=== PATIENT | male | born 1955 | race Caucasian/White ===

== ENCOUNTER 2016-07-27 10:14 | Emergency (ER) | payer OTHER ==
[~2016-07-27] VITALS: Ht 180.3 cm; Wt 95.3 kg
--- NOTE | 2016-07-27 10:14 | NUR ---
BROUGHT IMMEDIATELY BACK TO BED #7 AND TRIAGED. REPORT GIVEN TO ESTHER
[2016-07-27 10:15] VITALS: BP_SYST 139
--- NOTE | 2016-07-27 10:15 | NUR ---
Dr. Johnson at bedside for evaluation
[2016-07-27] MEDS ORDERED: ASPIRIN 81 MG TAB.CHEW PO ONE (10:30)
[2016-07-27 11:12] LABS: BASOPHILS # (AUTO) 0.1 K/uL (0.0-0.2); EOSINOPHILS # (AUTO) 0.3 K/uL (0.0-0.4); EOSINOPHILS % (AUTO) 4.6 % (0.0-4.0); HEMATOCRIT 37.8 % (36-54); HEMOGLOBIN 13.1 g/dL (14.0-18.0); LYMPHOCYTES % (AUTO) 35.9 % (20.5-51.5); MEAN CORPUSCULAR HEMOGLOBIN 31 pg (27-31); MEAN CORPUSCULAR HGB CONC 35 % (32-36); MEAN CORPUSCULAR VOLUME 89 fL (79.0-98.0); MONOCYTES # (AUTO) 0.5 K/uL (0.0-1.0); MONOCYTES % (AUTO) 8.6 % (1.7-9.3); NEUTROPHILS # (AUTO) 2.6 K/uL (1.8-7.7); NEUTROPHILS % (AUTO) 49.9 % (40.0-70.0); PLATELET COUNT (AUTO) 148 K/uL (130-430); RED BLOOD CELL COUNT(AUTO) 4.25 MIL/uL (4.2-6.2); RED CELL DISTRIBUTION WIDTH 13.1 % (9.0-15.0); WHITE BLOOD COUNT (AUTO) 5.5 K/uL (4.8-10.8)
--- NOTE | 2016-07-27 11:26 | NUR ---
Patient resting quietly. No acute distress noted. Vital signs within normal range. Denies pain at this time.
[2016-07-27 11:31] LABS: PROTHROMBIN TIME 10.8 SECS (9.5-12.5)
[2016-07-27 11:42] LABS: CALCIUM 8.6 mg/dL (8.4-11.0); CREATININE 1.36 mg/dL (0.55-1.30); POTASSIUM 3.9 mmol/L (3.5-5.1)
[2016-07-27 11:46] LABS: ALBUMIN 3.6 g/dL (3.4-4.8); TOTAL BILIRUBIN 0.3 mg/dL (0.0-1.0); TOTAL PROTEIN, SERUM 6.7 g/dL (6.4-8.3)
[2016-07-27 12:37] VITALS: BP_SYST 114
--- NOTE | 2016-07-27 12:37 | NUR ---
Patient given written and verbal discharge instructions and verbalizes understanding. ER MD discussed with patient the results and treatment provided. Given copies of tests performed in ER. Patient in stable condition. ID arm band removed. nO Rx given. Patient educated on pain management and to follow up with PMD. Pain Scale 0/10. Opportunity for questions provided and answered.
== END 2016-07-27 12:37 | disposition home or self-care (01) ==
LOC: SED 10:40
DX: F41.9 Anxiety disorder, unspecified (principal); R03.0 Elevated blood-pressure reading, without diagnosis of hypertension; Z87.891 Personal history of nicotine dependence
CPT/HCPCS: 36415; 80053; 84484; 85025; 85610-TC; 93005; 99285

== ENCOUNTER 2022-10-26 06:02 | Inpatient (IN) | payer OTHER ==
[~2022-10-26] VITALS: Ht 180.3 cm; Wt 94.8 kg
[2022-10-26 06:10] VITALS: BP_SYST 140; PULSE 100; RESP 25; TEMP 97.4; O2SAT 99
--- NOTE | 2022-10-26 06:14 | NUR ---
PATIENT PRESENTS WITH ABD PAIN/BACK PAIN 10/10, HISTORY OF KIDNEY STONES
--- NOTE | 2022-10-26 06:17 | NUR ---
PATIENT PLACED IN ED BED 8, REPORT GIVEN TO NATALIE OBRIEN
--- NOTE | 2022-10-26 06:25 | NUR ---
ER at bedside examining patient.
[2022-10-26] MEDS ORDERED: ONDANSETRON 4 MG ODT TAB PO ONE (06:30)
[2022-10-26] MEDS ORDERED: KETOROLAC TROMETHAMINE 30 MG VIAL IVP ONE (06:30)
--- NOTE | 2022-10-26 06:49 | NUR ---
# 20 gauge angiocath placed to LAC. Use of asceptic technique. Opsite placed over site. Blood return noted. Blood for lab drawn from site. Flushed with 10 cc of normal saline. No evidence of infiltration noted. Patient tolerated well.
[2022-10-26 07:10] LABS: BASOPHILS % (AUTO) 0.3 % (0.0-2.0); EOSINOPHILS # (AUTO) 0.2 K/uL (0.0-0.4); EOSINOPHILS % (AUTO) 1.3 % (0.0-4.0); HEMATOCRIT 41.6 % (36-54); HEMOGLOBIN 13.8 g/dL (14.0-18.0); LYMPHOCYTES # (AUTO) 1.4 K/uL (1.0-5.5); LYMPHOCYTES % (AUTO) 11.2 % (20.5-51.5); MEAN CORPUSCULAR HEMOGLOBIN 30 pg (27-31); MEAN CORPUSCULAR HGB CONC 33 % (32-36); MEAN CORPUSCULAR VOLUME 90 fL (79.0-98.0); MONOCYTES % (AUTO) 7.9 % (1.7-9.3); NEUTROPHILS # (AUTO) 9.8 K/uL (1.8-7.7); NEUTROPHILS % (AUTO) 79.3 % (40.0-70.0); PLATELET COUNT (AUTO) 162 K/uL (130-430); RED BLOOD CELL COUNT(AUTO) 4.64 MIL/uL (4.2-6.2); RED CELL DISTRIBUTION WIDTH 14.5 % (9.0-15.0); WHITE BLOOD COUNT (AUTO) 12.4 K/uL (4.8-10.8)
[2022-10-26 07:22] LABS: ALBUMIN 3.6 g/dL (3.4-4.8); C-REACTIVE PROTEIN QUANT 7.4 mg/dL (0-0.5); CALCIUM 8.8 mg/dL (8.4-11.0); CREATININE 1.25 mg/dL (0.55-1.30); TOTAL BILIRUBIN 0.6 mg/dL (0.0-1.0)
--- NOTE | 2022-10-26 07:37 | NUR ---
Recieved pt report from CAMILLE Levy. Pt on right lateral position holding position with 5/10 pain. Pt refuses urinal due to unable to movement fo urinalysis.
--- NOTE | 2022-10-26 07:42 | NUR ---
Note hannah in EDM - 10/26/22 at 0746 by SDNURTREVOR Rad Stat call to notify MD García: Perforated liver and early absess. recommend consultation. Reported by: Juan Alberto
--- NOTE | 2022-10-26 07:47 | NUR ---
Rad Stat call to notify MD García: Perforated diverticulitis and early absess. recommend consultation. Reported by: Juan Alberto
[2022-10-26] MEDS ORDERED: PIPERACILLIN/TAZO 3.375 GM in NS 50 ML IV ONE (08:00)
[2022-10-26] MEDS ORDERED: metroNIDAZOLE 500 mg/NS 100 ML IV ONE (08:00)
[2022-10-26] MEDS ORDERED: MORPHINE 2 MG/ML INJ. SYRINGE IVP ONE ×2 (08:15→22:15)
--- NOTE | 2022-10-26 08:16 | NUR ---
Blood cultures drawn, prior to administration of antibiotic.
--- NOTE | 2022-10-26 08:18 | NUR ---
Admit bed requested Patient will be admitted to care of . Admitted to medsurg unit. Diagnosis diverticulitis Inpatient (Yes or No) y Observation (Yes or No) n Orientation concerns or request close to nursing station (Yes or No) n Covid Status na On vent or bipap n Isolation requirements n Needs a sitter n From Home (Yes or if No enter name of facility) home Requires Dialysis (Yes or No) n Med Rec Completed (Yes of No) ppending.
--- NOTE | 2022-10-26 08:54 | NUR ---
IV to LAC resistant to flush. DCd IV. # 20 gauge angiocath placed to RAC. Use of asceptic technique. Opsite placed over site. Blood return noted. Blood for lab drawn from site. Flushed with 10 cc of normal saline. No evidence of infiltration noted. Patient tolerated well.
--- NOTE | 2022-10-26 08:55 | NUR ---
Medicated per MD orders control pain per RN Toko. IVF infusing with no s/s of infiltration at this time. Will cont to monitor
--- NOTE | 2022-10-26 09:44 | NUR ---
Report given to CAMILLE Engle per telephone for [facility] pt. EMT Nirmala transported via [facility].
--- NOTE | 2022-10-26 09:54 | NUR ---
CONSULTATION PAGED/CALLED Reason for Consultation: [] DIVERTICULITIS Person Who was Notified: [] ETTA Consulting Physician: [] DR CHI Commercial Intern Specialty: [] GI Ordering Physician: [] DR RIVERA
[2022-10-26 09:55] VITALS: BP_SYST 111; PULSE 91; RESP 18; TEMP 98; O2SAT 99
--- NOTE | 2022-10-26 09:55 | NUR ---
Admission note: patient is transferred from ER via gurney. Patient is awake alert x4. Ambulatory by himself. Bed in the lowest position and side rails x2 up. Oriented the room and instructed to use call light to call for help. No pain or discomfort at this time. Will continue patient care.
--- NOTE | 2022-10-26 09:58 | NUR ---
CONSULTATION PAGED/CALLED Reason for Consultation: [] DIVERTICULITIS Person Who was Notified: [] DR GAINES Consulting Physician: [] DR GAINES Investigator Claims Specialty: [] GEN TANVI Ordering Physician: [] DR RIVERA
--- NOTE | 2022-10-26 09:59 | NUR ---
Note: Report received from Anastasia. Patient is still having the Flagyl running. Will continue patient care.
[2022-10-26 10:06] LABS: BILIRUBIN,URINE NEGATIVE (NEGATIVE); BLOOD, URINE NEGATIVE (NEGATIVE); CLARITY/URINE CLEAR (CLEAR); COLOR,URINE YELLOW (YELLOW); GLUCOSE,URINE NEGATIVE (NEGATIVE); KETONES,URINE TRACE (NEGATIVE); LEUKOCYTE ESTERASE ,URINE NEGATIVE (NEGATIVE); NITRITE, URINE NEGATIVE (NEGATIVE); PROTEIN URINE 1+ (NEGATIVE)
[2022-10-26] MEDS: D5/0.45 NS 1,000 ML IV SCH ×2 (10:34→18:01)
[2022-10-26] MEDS ORDERED: MORPHINE 2 MG/ML INJ. SYRINGE IVP PRN (11:00)
[2022-10-26] MEDS ORDERED: LORazepam 2 MG/ML VIAL IVP PRN (11:00)
[2022-10-26] MEDS ORDERED: MORPHINE 4 MG INJ. 4 MG/ML VIAL IVP PRN (11:00)
[2022-10-26] MEDS ORDERED: NALOXONE HCL 0.4 MG/ML AMP (NARCAN) IVP PRN ×2 (11:00→22:15)
--- NOTE | 2022-10-26 11:14 | NUR ---
CONSULTATION PAGED/CALLED Reason for Consultation: [] LEUKOCYTOSIS Person Who was Notified: [] VIVIAN Consulting Physician: [] DR WILSON Panel Cutter Specialty: [] ID Ordering Physician: [] DR Juany RIVERA
[2022-10-26] MEDS: metroNIDAZOLE 500 mg/NS 100 ML IV SCH ×2 (13:48→21:04)
[2022-10-26] MEDS ORDERED: PIPERACILLIN/TAZO 4.5GM/DEX-IS 100 ML IV SCH (14:00)
[2022-10-26 16:00] VITALS: BP_SYST 108; PULSE 91; RESP 18; TEMP 99.5; O2SAT 97
--- NOTE | 2022-10-26 16:40 | NUR ---
Note: patient complained abdominal and back pain but refused morphine. Called and spoke to Dr. Juany Coffey with new orders.
[2022-10-26] MEDS: KETOROLAC TROMETHAMINE 30 MG VIAL IVP PRN (16:59)
[2022-10-26] MEDS: PIPERACILLIN/TAZO 4.5GM/DEX-IS 100 ML IV SCH (18:00)
[2022-10-26 19:00] VITALS: BP_SYST 110; PULSE 65; RESP 16; TEMP 98; O2SAT 96; O2SAT 98
--- NOTE | 2022-10-26 19:20 | NUR ---
Closing note: Reported to Alvin. patient is awake alert x4. Resting in bed, No pain or discomfort at this time. Endorse to continue patient care.
[2022-10-26 20:00] VITALS: BP_SYST 110; PULSE 65; RESP 16; TEMP 98; O2SAT 98
--- NOTE | 2022-10-26 20:00 | NUR ---
pt.assessed.v/s assessed values wnl.pt.stated pain present,tolerable but does not want the morphine:4mg ivp dose. to apprise ./iv access intact.pt.capable to reposition self.no c/o nausea.call light/telephone w/in access of the pt.
--- NOTE | 2022-10-26 22:30 | NUR ---
HIGH ALERT NOTE: Called Dr. singh;a back at identified within the medical roster to verify physician authenticity./samantha;luis ordered morphine;2mg ivp x1.
--- NOTE | 2022-10-26 23:00 | NUR ---
returned the page. apprised that the pt.prefers a lower dose morphine that the 4mg ordered. ordered morphine;2mg ivp x1 .
[2022-10-26] MEDS: ONDANSETRON HCL 4 MG/2 ML VIAL IVP PRN (23:11)
[2022-10-26] MEDS: TEMAZEPAM 15 MG CAPSULE PO PRN (23:11)
[2022-10-27] VITALS (8 sets, daily range): BP systolic 98–136; PULSE 84–107; RESP 15–20; TEMP 96.9–99.1; O2SAT 96–99
--- NOTE | 2022-10-27 | NUR ---
pt.assessed.v/s assessed values wnl.pain present tolerable.no c/o pain,nausea.i have re-established the iv access location #22g rt.hand.pt.capable to reposition self.call light/telephone w/in access of the pt.
--- NOTE | 2022-10-27 02:00 | NUR ---
abx zosyn 0200a dose administered.
[2022-10-27] MEDS: PIPERACILLIN/TAZO 4.5GM/DEX-IS 100 ML IV SCH ×3 (02:15→19:17)
--- NOTE | 2022-10-27 03:00 | NUR ---
pt.c/o pain.toradol ivp administered.to assess the efficacy of the pain medication per pain mgx protocol.
[2022-10-27] MEDS: KETOROLAC TROMETHAMINE 30 MG VIAL IVP PRN (03:32)
--- NOTE | 2022-10-27 04:00 | NUR ---
pt.assessed.pt.quiescent.per flacc pain mgx pt.absent facial grimaces/body posturing.pt.capable to reposition self. call light/telephone w/in access of the pt.
[2022-10-27] MEDS: D5/0.45 NS 1,000 ML IV SCH ×2 (05:11→14:43)
--- NOTE | 2022-10-27 06:00 | NUR ---
pt.assessed.pt.quiescent;somnolent.per flacc pain mgx pt.absent facial grimaces/body posturing.iv access intact;patent flagyl abx ivpb 0600a dose administered.pt.capable to reposition self.call light/telephone w/in access of the pt.
[2022-10-27 06:27] LABS: BASOPHILS % (AUTO) 0.2 % (0.0-2.0); EOSINOPHILS % (AUTO) 0.3 % (0.0-4.0); HEMATOCRIT 36.8 % (36-54); MEAN CORPUSCULAR HEMOGLOBIN 29 pg (27-31); MEAN CORPUSCULAR HGB CONC 33 % (32-36); MEAN CORPUSCULAR VOLUME 90 fL (79.0-98.0); MONOCYTES # (AUTO) 0.6 K/uL (0.0-1.0); MONOCYTES % (AUTO) 4.8 % (1.7-9.3); NEUTROPHILS # (AUTO) 10.4 K/uL (1.8-7.7); NEUTROPHILS % (AUTO) 86.7 % (40.0-70.0); PLATELET COUNT (AUTO) 139 K/uL (130-430); RED BLOOD CELL COUNT(AUTO) 4.09 MIL/uL (4.2-6.2); RED CELL DISTRIBUTION WIDTH 15.1 % (9.0-15.0)
[2022-10-27 07:14] LABS: CALCIUM 7.9 mg/dL (8.4-11.0); CREATININE 1.98 mg/dL (0.55-1.30)
[2022-10-27] MEDS ORDERED: NALOXONE HCL 0.4 MG/ML AMP (NARCAN) IVP PRN ×2 (09:00→18:45)
[2022-10-27] MEDS ORDERED: MORPHINE 2 MG/ML INJ. SYRINGE IVP PRN (09:00)
[2022-10-27] MEDS: metroNIDAZOLE 500 mg/NS 100 ML IV SCH ×3 (09:11→21:38)
[2022-10-27] MEDS: ONDANSETRON HCL 4 MG/2 ML VIAL IVP PRN ×2 (09:14→19:17)
--- NOTE | 2022-10-27 17:24 | NUR ---
End of Shift Summary: Spent the early portion of the shift trying to get patient's pain medicines to a level that will control pain without overwhelming patient. Patient settled on Morphine [address] Coffey adjusted for patient. After receiving medication three times this shift in these amounts, patient states he is feeling less abdominal pain. Patient continues to rest without issues except pain. Patient is to remain NPO per MD order.
[2022-10-27] MEDS: MORPHINE 2 MG/ML INJ. SYRINGE IVP PRN ×2 (19:16→22:37)
--- NOTE | 2022-10-27 20:00 | NUR ---
NOTES: pt. checked, pretty awake, noted some relief from abdominal pain. VS done. IVF infusing via rt. arm moves all extremities. O2 @ 2 liters per nc. pt. family at bedside. call light within reach.
--- NOTE | 2022-10-27 22:20 | NUR ---
NOTES: pt. medicated with IV Morphine as ordered for c/o abdominal pain. no nausea noted.
--- NOTE | 2022-10-27 22:30 | NUR ---
NOTES: pt. assisted to the restroom, hs care done, changed gown. needs attended. pt. son at bedside.
--- NOTE | 2022-10-27 22:34 | NUR ---
NOTES: spoke with Dr. Hayden about IV Zofran , ok to give q 3hrs prn since pt. requested if he could have it at the same time with IV morphine.
--- NOTE | 2022-10-27 23:45 | NUR ---
NOTES: pt. calm and resting, been dozing on and off.
[2022-10-28 00:20] VITALS: BP_SYST 104; PULSE 93; RESP 18; TEMP 96.1; O2SAT 88
[2022-10-28] MEDS: D5/0.45 NS 1,000 ML IV SCH ×3 (01:21→17:46)
[2022-10-28] MEDS: ONDANSETRON HCL 4 MG/2 ML VIAL IVP PRN ×7 (01:25→20:55)
[2022-10-28] MEDS: MORPHINE 2 MG/ML INJ. SYRINGE IVP PRN ×7 (01:30→21:05)
--- NOTE | 2022-10-28 01:30 | NUR ---
NOTES: pt. awakened, still wants something for abdominal pain and nausea, IV Morphine and Zofran given as requested. repositioned self. IV site patent. kept NPO except for ice chips.
[2022-10-28] MEDS: PIPERACILLIN/TAZO 4.5GM/DEX-IS 100 ML IV SCH ×3 (01:35→17:42)
--- NOTE | 2022-10-28 04:45 | NUR ---
NOTES: medicated for abdominal pain 10/13, does not want IV Toradol, Morphine 2 mg IVP given with IV Zofran per request. IV site patent.
[2022-10-28 05:26] LABS: BASOPHILS % (AUTO) 0.2 % (0.0-2.0); EOSINOPHILS # (AUTO) 0.1 K/uL (0.0-0.4); EOSINOPHILS % (AUTO) 0.7 % (0.0-4.0); HEMATOCRIT 36.4 % (36-54); HEMOGLOBIN 11.9 g/dL (14.0-18.0); LYMPHOCYTES % (AUTO) 8.7 % (20.5-51.5); MEAN CORPUSCULAR HEMOGLOBIN 30 pg (27-31); MEAN CORPUSCULAR HGB CONC 33 % (32-36); MEAN CORPUSCULAR VOLUME 91 fL (79.0-98.0); MONOCYTES # (AUTO) 0.6 K/uL (0.0-1.0); MONOCYTES % (AUTO) 5.5 % (1.7-9.3); NEUTROPHILS # (AUTO) 9.3 K/uL (1.8-7.7); NEUTROPHILS % (AUTO) 84.9 % (40.0-70.0); PLATELET COUNT (AUTO) 144 K/uL (130-430); RED BLOOD CELL COUNT(AUTO) 4.02 MIL/uL (4.2-6.2); RED CELL DISTRIBUTION WIDTH 15.1 % (9.0-15.0)
[2022-10-28 05:41] LABS: ERYTHROCYTE SEDIMENTATION RATE 77 MM/HR (0-15)
[2022-10-28] MEDS: metroNIDAZOLE 500 mg/NS 100 ML IV SCH ×3 (05:49→21:07)
[2022-10-28 05:50] LABS: ANION GAP 8 (5-15); CALCIUM 8.2 mg/dL (8.4-11.0); CHLORIDE 104 mmol/L (98-107); CREATININE 1.68 mg/dL (0.55-1.30); GFR AFRICAN AMERICAN 53 mL/min (>90); GLUCOSE 148 mg/dL (70-99); UREA NITROGEN, BLOOD 26 mg/dL (8-21)
[2022-10-28 05:52] LABS: C-REACTIVE PROTEIN QUANT < 0.2 mg/dL (0-0.5)
--- NOTE | 2022-10-28 06:39 | NUR ---
CLOSING NOTES; pt. been dozing on and off. IVF infusing, site patent. will endorse to incoming shift. for further care and assistance. call light within reach.
--- NOTE | 2022-10-28 07:30 | NUR ---
Initial note: report received from Aria. Patient is awake alert x4. Call light in reach. Bed in the lowest position and side rails x2 up. is at the bedside. Will follow up with his pain medication due to abdominal pain. Will continue patient care.
[2022-10-28 08:00] VITALS: BP_SYST 103; PULSE 86; RESP 18; TEMP 97.7; O2SAT 97
[2022-10-28 12:00] VITALS: BP_SYST 106; PULSE 88; RESP 18; TEMP 97.1; O2SAT 98
--- NOTE | 2022-10-28 13:00 | NUR ---
Note: patient is resting in bed. Family is at the bedside. will continue to monitor the pain.
--- NOTE | 2022-10-28 15:00 | NUR ---
Note: Dr. Nur is here to see patient. Plan of care is discussed and no new order for now.
[2022-10-28 16:00] VITALS: BP_SYST 111; PULSE 89; RESP 18; TEMP 98.5; O2SAT 96
--- NOTE | 2022-10-28 19:30 | NUR ---
INITIAL NOTES: endorsed by day shift with DX Diverticulitis ( Perforated). in nondistress. pain management all day. call light within reach.
--- NOTE | 2022-10-28 19:35 | NUR ---
Closing note: reported to Aria. patient is resting in bed. No pain or discomfort at this time. Endorse to continue patient care. Family is at the bedside.
[2022-10-28 20:00] VITALS: BP_SYST 107; PULSE 89; RESP 20; TEMP 98.7; O2SAT 96
--- NOTE | 2022-10-28 20:00 | NUR ---
NOTES: pt. checked, with daughter at bedside. pt. feels little better. made rounds today. kept NPO except ice chips. IV site patent, IV infusing. O2 on @ 2 liters per nc. instructed on deep breathing. call light within reach.
[2022-10-28 20:30] VITALS: O2SAT 95
--- NOTE | 2022-10-28 21:05 | NUR ---
NOTES; pt. medicated with IV Morphine and IV Zofran for c/o abdominal pain and nausea. visitors at bedside.
--- NOTE | 2022-10-28 21:30 | NUR ---
NOTES: resting, noted some relief. still with visitors. needs attended.
[2022-10-29 00:17] VITALS: BP_SYST 126; BP_SYST 99; PULSE 121; PULSE 85; RESP 17; RESP 18; TEMP 97.6; TEMP 97.9; O2SAT 85; O2SAT 96
--- NOTE | 2022-10-29 00:20 | NUR ---
NOTES: offered pain medication, pt. said he is not in pain, will check back later.
--- NOTE | 2022-10-29 01:10 | NUR ---
NOTES: pt. checked and sound asleep.
[2022-10-29] MEDS: KETOROLAC TROMETHAMINE 30 MG VIAL IVP PRN (01:39)
--- NOTE | 2022-10-29 01:40 | NUR ---
NOTES: pt. awakened, starting to have abdominal pain, medicated with IV Toradol as requested 10/13. turn to his sides, back also aching. IV antibiotic started.
[2022-10-29] MEDS: PIPERACILLIN/TAZO 4.5GM/DEX-IS 100 ML IV SCH ×3 (01:41→18:46)
--- NOTE | 2022-10-29 05:30 | NUR ---
NOTES: pt. up to the restroom. oral care/am care done. verbalized he got sweaty, gown changed, back care done and draw sheet. pt. feels much better after.
[2022-10-29] MEDS: metroNIDAZOLE 500 mg/NS 100 ML IV SCH ×3 (06:01→22:17)
[2022-10-29 06:18] LABS: BASOPHILS % (AUTO) 0.3 % (0.0-2.0); EOSINOPHILS # (AUTO) 0.3 K/uL (0.0-0.4); HEMOGLOBIN 11.6 g/dL (14.0-18.0); LYMPHOCYTES # (AUTO) 1.2 K/uL (1.0-5.5); MEAN CORPUSCULAR HEMOGLOBIN 30 pg (27-31); MEAN CORPUSCULAR HGB CONC 33 % (32-36); MEAN CORPUSCULAR VOLUME 90 fL (79.0-98.0); MONOCYTES # (AUTO) 0.7 K/uL (0.0-1.0); MONOCYTES % (AUTO) 6.9 % (1.7-9.3); NEUTROPHILS # (AUTO) 8.4 K/uL (1.8-7.7); NEUTROPHILS % (AUTO) 78.8 % (40.0-70.0); PLATELET COUNT (AUTO) 164 K/uL (130-430); RED BLOOD CELL COUNT(AUTO) 3.89 MIL/uL (4.2-6.2); WHITE BLOOD COUNT (AUTO) 10.7 K/uL (4.8-10.8)
[2022-10-29 06:25] LABS: ALANINE AMINOTRANSFERASE 8 U/L (12-78); ALBUMIN 2.4 g/dL (3.4-4.8); ANION GAP 8 (5-15); ASPARTATE AMINOTRANSFERASE 15 U/L (10-37); CALCIUM 8.2 mg/dL (8.4-11.0); CHLORIDE 102 mmol/L (98-107); CREATININE 1.71 mg/dL (0.55-1.30); GFR AFRICAN AMERICAN 52 mL/min (>90); GLUCOSE 146 mg/dL (70-99); TOTAL BILIRUBIN 0.9 mg/dL (0.0-1.0); UREA NITROGEN, BLOOD 22 mg/dL (8-21)
[2022-10-29 06:26] LABS: C-REACTIVE PROTEIN QUANT < 0.2 mg/dL (0-0.5)
[2022-10-29] MEDS: ONDANSETRON HCL 4 MG/2 ML VIAL IVP PRN ×3 (06:46→18:54)
[2022-10-29] MEDS: D5/0.45 NS 1,000 ML IV SCH ×2 (06:46→18:45)
[2022-10-29] MEDS: MORPHINE 2 MG/ML INJ. SYRINGE IVP PRN ×3 (06:48→18:55)
--- NOTE | 2022-10-29 06:50 | NUR ---
CLOSING NOTES; pt. medicated with Morphine IV and Zofran. repositioned self. O2 on. IV site patent. kept NPO . call light within reach.
[2022-10-29 07:09] LABS: ERYTHROCYTE SEDIMENTATION RATE 83 MM/HR (0-15)
--- NOTE | 2022-10-29 07:30 | NUR ---
Initial note: Patient resting in bed. Call light in reach. Bed in the lowest position and side rails x2 up. Will follow up with his pain medication due to abdominal pain. Will continue patient care.
[2022-10-29 08:15] VITALS: BP_SYST 101; PULSE 79; RESP 18; TEMP 97.6; O2SAT 96
[2022-10-29 10:11] VITALS: O2SAT 96
--- NOTE | 2022-10-29 11:45 | NUR ---
Rounds: Patient resting in bed. Asked earlier for some prn for anxiety, prn given as ordered. Call light in reach. Bed in the lowest position and side rails x2 up. Will follow up with his pain medication due to abdominal pain. Will continue patient care.
--- NOTE | 2022-10-29 13:37 | NUR ---
CONSULTATION: REASON FOR CONSULT: ALFONSO CONSULTING PHYSICIAN: JAI ORDERED BY: Juany RIVERA SPOKE WITH MAXIMO [phone]
[2022-10-29 16:00] VITALS: BP_SYST 122; PULSE 91; RESP 17; TEMP 98.1; O2SAT 99
--- NOTE | 2022-10-29 16:32 | NUR ---
CTAP RESULTS RESULTS RELAYED TO DR NDIAYE. SURGEON WOULD LIKE TO REVIEW THE FILM WITH THE RADIOLOGIST. SURGEON WAS PROVIDED CELL PHONE NUMBER OF DR FAVIOLA MOREJON [phone]
--- NOTE | 2022-10-29 19:00 | NUR ---
Closing note: patient is awake alert x4. Resting in bed, No pain or discomfort at this time.Family at bedside . IV patent and running fluids as ordered. Endorse care to NOC nurse. to continue patient care.
[2022-10-29 20:00] VITALS: BP_SYST 116; PULSE 89; RESP 18; TEMP 99; O2SAT 99
--- NOTE | 2022-10-29 21:00 | NUR ---
Dr. Siu at bedside speaking with pt and pt on plan of care and current diagnosis. All questions answered by Dr. Siu. Plan to treat infection. said pt is allowed ice chips and small sips of water. pt verbalized understanding of plan of care
[2022-10-29 22:00] VITALS: O2SAT 96
[2022-10-29] MEDS: TEMAZEPAM 15 MG CAPSULE PO PRN (22:17)
[2022-10-30] MEDS: MORPHINE 2 MG/ML INJ. SYRINGE IVP PRN (01:30)
[2022-10-30] MEDS: ONDANSETRON HCL 4 MG/2 ML VIAL IVP PRN (01:31)
[2022-10-30] MEDS: PIPERACILLIN/TAZO 4.5GM/DEX-IS 100 ML IV SCH ×3 (01:32→17:26)
[2022-10-30] MEDS: D5/0.45 NS 1,000 ML IV SCH ×3 (02:30→22:27)
[2022-10-30 05:25] LABS: BASOPHILS % (AUTO) 0.5 % (0.0-2.0); EOSINOPHILS # (AUTO) 0.4 K/uL (0.0-0.4); EOSINOPHILS % (AUTO) 4.8 % (0.0-4.0); HEMOGLOBIN 11.2 g/dL (14.0-18.0); LYMPHOCYTES # (AUTO) 1.1 K/uL (1.0-5.5); LYMPHOCYTES % (AUTO) 12.3 % (20.5-51.5); MEAN CORPUSCULAR HEMOGLOBIN 30 pg (27-31); MEAN CORPUSCULAR HGB CONC 33 % (32-36); MEAN CORPUSCULAR VOLUME 90 fL (79.0-98.0); MONOCYTES # (AUTO) 0.6 K/uL (0.0-1.0); MONOCYTES % (AUTO) 6.3 % (1.7-9.3); NEUTROPHILS % (AUTO) 76.1 % (40.0-70.0); PLATELET COUNT (AUTO) 163 K/uL (130-430); RED BLOOD CELL COUNT(AUTO) 3.78 MIL/uL (4.2-6.2); RED CELL DISTRIBUTION WIDTH 14.8 % (9.0-15.0); WHITE BLOOD COUNT (AUTO) 9.2 K/uL (4.8-10.8)
[2022-10-30] MEDS: metroNIDAZOLE 500 mg/NS 100 ML IV SCH ×3 (05:33→22:02)
[2022-10-30 07:30] VITALS: O2SAT 98
--- NOTE | 2022-10-30 07:30 | NUR ---
INITIAL NOTE PT RESTING IN BED, ALERT/AWAKE. BREATHING EVEN AND NONLABORED. NO S/S OF ACUTE DISTRESS. SAFETY CHECKS IN PLACE. CALL LIGHT IN REACH. CONTINUE TO MONITOR
[2022-10-30 07:50] LABS: ERYTHROCYTE SEDIMENTATION RATE 85 MM/HR (0-15)
[2022-10-30] MEDS: ACETAMINOPHEN I.V. 1000 MG 100 ML IV PRN ×3 (07:58→20:21)
[2022-10-30 08:25] VITALS: BP_SYST 129; PULSE 83; RESP 16; TEMP 97
[2022-10-30 09:08] LABS: CALCIUM 8.2 mg/dL (8.4-11.0); CREATININE 1.33 mg/dL (0.55-1.30); PHOSPHORUS 2.9 mg/dL (2.7-4.5)
--- NOTE | 2022-10-30 11:17 | NUR ---
ROUNDS: PT RESTING IN BED, ALERT/AWAKE. BREATHING EVEN AND NONLABORED. HAD PAIN MEDS EARLIER, REPORTS MED WAS HELPFUL. NO S/S OF ACUTE DISTRESS. SAFETY CHECKS IN PLACE. CALL LIGHT IN REACH. CONTINUE TO MONITOR
[2022-10-30 12:49] VITALS: BP_SYST 135; PULSE 81; RESP 16; TEMP 97.3; O2SAT 95
[2022-10-30 13:28] LABS: C-REACTIVE PROTEIN QUANT 18.6 mg/dL (0-0.5)
[2022-10-30 16:51] VITALS: BP_SYST 128; PULSE 80; RESP 16; TEMP 97.9; O2SAT 94
--- NOTE | 2022-10-30 18:53 | NUR ---
CLOSING NOTE PT RESTING IN BED AND EYES CLOSED. BREATHING EVEN AND NONLABORED. ALL COMFORT MEASURE IN PLACE. ENCOURAGE TO DO BREATHING EXERCISES , PROVIDED INCENTIVE SPIROMETER EARLIER. SAFETY CHECKS IN PLACE. CALL LIGHT IN REACH. CONTINUE TO MONITOR
[2022-10-30 20:00] VITALS: BP_SYST 133; PULSE 81; RESP 16; TEMP 98.7; O2SAT 97
--- NOTE | 2022-10-30 20:31 | NUR ---
Paged Dr. Coffey Joseph
[2022-10-30 22:00] VITALS: O2SAT 98
[2022-10-30] MEDS: FAMOTIDINE PF 20 MG/2 ML VIAL IVP SCH (22:02)
[2022-10-31 02:30] VITALS: BP_SYST 128; PULSE 80; RESP 18; TEMP 96.4; O2SAT 98
[2022-10-31] MEDS: PIPERACILLIN/TAZO 4.5GM/DEX-IS 100 ML IV SCH ×3 (03:10→17:46)
[2022-10-31] MEDS ORDERED: ACETAMINOPHEN I.V. 1000 MG 100 ML IV ONE (04:37)
[2022-10-31] MEDS: ACETAMINOPHEN I.V. 1000 MG 100 ML IV PRN ×3 (05:24→23:59)
[2022-10-31 05:54] LABS: ANION GAP 9 (5-15); CALCIUM 8.3 mg/dL (8.4-11.0); CHLORIDE 104 mmol/L (98-107); CREATININE 1.14 mg/dL (0.55-1.30); GFR AFRICAN AMERICAN 82 mL/min (>90); GLUCOSE 125 mg/dL (70-99); UREA NITROGEN, BLOOD 13 mg/dL (8-21)
[2022-10-31 06:04] LABS: BASOPHILS % (AUTO) 0.5 % (0.0-2.0); EOSINOPHILS # (AUTO) 0.4 K/uL (0.0-0.4); EOSINOPHILS % (AUTO) 3.8 % (0.0-4.0); HEMATOCRIT 34.4 % (36-54); HEMOGLOBIN 11.4 g/dL (14.0-18.0); LYMPHOCYTES % (AUTO) 10.9 % (20.5-51.5); MEAN CORPUSCULAR HEMOGLOBIN 30 pg (27-31); MEAN CORPUSCULAR HGB CONC 33 % (32-36); MEAN CORPUSCULAR VOLUME 90 fL (79.0-98.0); MONOCYTES % (AUTO) 10.2 % (1.7-9.3); NEUTROPHILS # (AUTO) 7.1 K/uL (1.8-7.7); NEUTROPHILS % (AUTO) 74.6 % (40.0-70.0); PLATELET COUNT (AUTO) 196 K/uL (130-430); RED BLOOD CELL COUNT(AUTO) 3.85 MIL/uL (4.2-6.2); WHITE BLOOD COUNT (AUTO) 9.5 K/uL (4.8-10.8)
[2022-10-31] MEDS: metroNIDAZOLE 500 mg/NS 100 ML IV SCH ×3 (06:07→22:03)
[2022-10-31 06:30] LABS: C-REACTIVE PROTEIN QUANT < 0.2 mg/dL (0-0.5)
[2022-10-31 07:02] LABS: ERYTHROCYTE SEDIMENTATION RATE 84 MM/HR (0-15)
[2022-10-31 08:31] VITALS: BP_SYST 126; PULSE 77; RESP 18; TEMP 97.3; O2SAT 96
[2022-10-31] MEDS: D5/0.45 NS 1,000 ML IV SCH ×2 (08:49→17:45)
[2022-10-31] MEDS: FAMOTIDINE PF 20 MG/2 ML VIAL IVP SCH ×2 (08:49→20:39)
--- NOTE | 2022-10-31 10:15 | NUR ---
YANET went to bedside to round on patient . He is about to enter the shower. DCP discussed with patient . She has many questions concerning who the consults are and what the plan of treatment is. Dr Cancino came to bedside and spoke with her. YANET discussed possible HH for RN disease managment. states she is "not ready to discuss all of this right now" CM gave number to reach when she is ready to discuss DCP or has questions. She is waiting for Dr Andrews to speak with her.
[2022-10-31 11:28] VITALS: BP_SYST 148; PULSE 81; RESP 18; TEMP 97.4; O2SAT 95
--- NOTE | 2022-10-31 15:22 | NUR ---
Left message with Doctor Jackson regarding second opinion of a perforated bowel surgery as emergent or discharge back to [facility].
--- NOTE | 2022-10-31 15:25 | NUR ---
CALLED DR CHACKO FOR CONSULT SECOND OPINION HE STATED HE WILL SEND HIS PA TODAY TO SEE PT. AND HE WILL MAKE ROUND TOMORROW MORNING [phone]
[2022-10-31 18:14] VITALS: BP_SYST 135; PULSE 84; RESP 17; TEMP 98.2; O2SAT 95
[2022-10-31 20:00] VITALS: BP_SYST 129; PULSE 78; RESP 17; TEMP 98.6; O2SAT 97
[2022-10-31] MEDS: TEMAZEPAM 15 MG CAPSULE PO PRN (21:54)
[2022-10-31] MEDS ORDERED: traZODone HCL 50 MG TABLET (DESYREL) PO PRN (23:15)
[2022-11-01] VITALS (8 sets, daily range): BP systolic 124–138; PULSE 67–82; RESP 17–21; TEMP 97.3–98.7; O2SAT 94–98
[2022-11-01] MEDS: PIPERACILLIN/TAZO 4.5GM/DEX-IS 100 ML IV SCH ×3 (01:21→18:08)
--- NOTE | 2022-11-01 01:25 | NUR ---
PATIENT CALLED STATING THAT HIS ROOMMATE IS CONFUSED AND WAS WAKEN BY ROOMMATE, INFORMED PATIENT THAT WE COULD MOVE HIM TO A DIFFERENT ROOM BUT PATIENT DENIED, I ENCOURAGED HIM THAT TO PLEASE INFORMED ME IF HE WOULD LIKE TO BE MOVED AT ANY TIME. Addendum: 11/01/22 at 0430 by Jaimie Landon LVN WRONG PATIENT
[2022-11-01] MEDS: metroNIDAZOLE 500 mg/NS 100 ML IV SCH ×3 (05:05→22:47)
[2022-11-01] MEDS: D5/0.45 NS 1,000 ML IV SCH ×3 (06:10→22:46)
[2022-11-01 06:17] LABS: BASOPHILS % (AUTO) 0.5 % (0.0-2.0); EOSINOPHILS # (AUTO) 0.3 K/uL (0.0-0.4); EOSINOPHILS % (AUTO) 3.8 % (0.0-4.0); HEMATOCRIT 35.1 % (36-54); HEMOGLOBIN 11.6 g/dL (14.0-18.0); LYMPHOCYTES # (AUTO) 1.2 K/uL (1.0-5.5); LYMPHOCYTES % (AUTO) 13.4 % (20.5-51.5); MEAN CORPUSCULAR HEMOGLOBIN 30 pg (27-31); MEAN CORPUSCULAR HGB CONC 33 % (32-36); MEAN CORPUSCULAR VOLUME 89 fL (79.0-98.0); MONOCYTES % (AUTO) 10.8 % (1.7-9.3); NEUTROPHILS # (AUTO) 6.5 K/uL (1.8-7.7); NEUTROPHILS % (AUTO) 71.5 % (40.0-70.0); PLATELET COUNT (AUTO) 216 K/uL (130-430); RED BLOOD CELL COUNT(AUTO) 3.94 MIL/uL (4.2-6.2); RED CELL DISTRIBUTION WIDTH 14.7 % (9.0-15.0)
[2022-11-01 06:35] LABS: ANION GAP 10 (5-15); CALCIUM 8.1 mg/dL (8.4-11.0); CHLORIDE 104 mmol/L (98-107); CREATININE 1.14 mg/dL (0.55-1.30); GFR AFRICAN AMERICAN 82 mL/min (>90); GLUCOSE 128 mg/dL (74-106); UREA NITROGEN, BLOOD 9 mg/dL (8-21)
[2022-11-01 06:41] LABS: C-REACTIVE PROTEIN QUANT < 0.2 mg/dL (0-0.5)
[2022-11-01 08:48] LABS: ERYTHROCYTE SEDIMENTATION RATE 74 MM/HR (0-15)
[2022-11-01] MEDS: FAMOTIDINE PF 20 MG/2 ML VIAL IVP SCH ×2 (09:11→22:46)
[2022-11-01] MEDS: ACETAMINOPHEN I.V. 1000 MG 100 ML IV PRN ×2 (09:12→18:24)
--- NOTE | 2022-11-01 13:20 | NUR ---
Dietitian Recommendations * Consider alternative nutrition support within 1 week to optimize nutritional status (TPN/PPN) LP, MS, RD Please refer to Nutrition Assessment for details. Addendum: 11/01/22 at [address] Amended: Links added.
--- NOTE | 2022-11-01 18:35 | NUR ---
Pt. is AAOx 4, verbally responsive, RA, Respiration even and non-labored. Abdominal distention. CT stated SBO. MD gave order to insert NG-Tube for decompression and midline for multiple IV ATB. Endorsed to next shift to insert NG-Tube. Cont. with care.
[2022-11-01] MEDS: TEMAZEPAM 15 MG CAPSULE PO PRN (23:32)
[2022-11-02] VITALS (8 sets, daily range): BP systolic 127–147; PULSE 62–81; RESP 15–16; TEMP 97.1–97.4; O2SAT 94–99
[2022-11-02] MEDS: ACETAMINOPHEN I.V. 1000 MG 100 ML IV PRN ×3 (01:48→22:02)
[2022-11-02] MEDS: PIPERACILLIN/TAZO 4.5GM/DEX-IS 100 ML IV SCH ×3 (01:50→17:42)
[2022-11-02 05:42] LABS: BASOPHILS % (AUTO) 0.5 % (0.0-2.0); EOSINOPHILS # (AUTO) 0.4 K/uL (0.0-0.4); EOSINOPHILS % (AUTO) 4.7 % (0.0-4.0); HEMATOCRIT 35.3 % (36-54); HEMOGLOBIN 11.8 g/dL (14.0-18.0); LYMPHOCYTES # (AUTO) 1.5 K/uL (1.0-5.5); LYMPHOCYTES % (AUTO) 16.6 % (20.5-51.5); MEAN CORPUSCULAR HEMOGLOBIN 30 pg (27-31); MEAN CORPUSCULAR HGB CONC 33 % (32-36); MEAN CORPUSCULAR VOLUME 89 fL (79.0-98.0); MONOCYTES % (AUTO) 11.2 % (1.7-9.3); NEUTROPHILS # (AUTO) 6.2 K/uL (1.8-7.7); PLATELET COUNT (AUTO) 243 K/uL (130-430); RED BLOOD CELL COUNT(AUTO) 3.97 MIL/uL (4.2-6.2); RED CELL DISTRIBUTION WIDTH 14.9 % (9.0-15.0); WHITE BLOOD COUNT (AUTO) 9.3 K/uL (4.8-10.8)
[2022-11-02] MEDS: metroNIDAZOLE 500 mg/NS 100 ML IV SCH ×3 (06:14→21:16)
[2022-11-02 06:15] LABS: ALBUMIN 2.3 g/dL (3.4-4.8); CALCIUM 8.1 mg/dL (8.4-11.0); CREATININE 1.1 mg/dL (0.55-1.30); PHOSPHORUS 3.4 mg/dL (2.7-4.5); TOTAL BILIRUBIN 0.6 mg/dL (0.0-1.0)
[2022-11-02 06:46] LABS: ERYTHROCYTE SEDIMENTATION RATE 61 MM/HR (0-15)
--- NOTE | 2022-11-02 06:59 | NUR ---
CONSULTATION PAGED/CALLED Reason for Consultation: [] 2ND OPINION FOR PERFORATED DIVERTICULITIS Person Who was Notified: [] TERRI Consulting Physician: [] DR ADALBERTO BEATTY Rn Coronary Care Unit Specialty: [] GEN SURGEON Ordering Physician: [] DR GAINES
[2022-11-02] MEDS: FAMOTIDINE PF 20 MG/2 ML VIAL IVP SCH ×2 (09:06→21:16)
[2022-11-02] MEDS: D5/0.45 NS 1,000 ML IV SCH (11:30)
--- NOTE | 2022-11-02 12:00 | NUR ---
PATIENT POTASSIUM LEVEL IS 3.2 CALLED Angeles CHACKO MD PRESCRIBED KCL 40 MEQ IV X1
--- NOTE | 2022-11-02 12:00 | NUR ---
ROUNDING NOTES PATIENT RESTING, BREATHING UNLABORED ON RA. NO PAIN, NO DISTRESS, NO SOB NOTED. ALL NEED MET AT THIS TIME. SAFETY PRECAUTION IN PLACE. CALL LIGHT WITHIN REACH. BED LOCKED IN LOWEST POSITION. BED ALARM ON. WILL CONTINUE WITH PLAN OF CARE.
[2022-11-02] MEDS ORDERED: POTASSIUM CHLORIDE 40 MEQ in NS 250 ML IV ONE (18:00)
--- NOTE | 2022-11-02 18:50 | NUR ---
CLOSING NOTES PATIENT RESTING, BREATHING UNLABORED ON RA. NO PAIN, NO DISTRESS, NO SOB NOTED. ALL NEED MET AT THIS TIME. SAFETY PRECAUTION IN PLACE. CALL LIGHT WITHIN REACH. BED LOCKED IN LOWEST POSITION. BED ALARM ON. WILL ENDORSE TO PAINTER MIRROR NURSE.
[2022-11-02] MEDS ORDERED: KCL 40 mEq in 100 mL (PREMIX) 100 ML IV ONE (20:00)
--- NOTE | 2022-11-02 21:17 | NUR ---
RECEIVED PT SITTING AT EDGE OF BED. AAOX4, NO DISTRESS NOTED, DENIES PAIN. MIDLINE TO LT UPPER EXTREMITY, SITE CDI. ABD DISTENDED, HYPERACTIVE BOWEL SOUNDS, AND FIRM. AMBULATED TO BATHROOM, GAIT STEADY.
[2022-11-02] MEDS: TEMAZEPAM 15 MG CAPSULE PO PRN (22:09)
[2022-11-03 00:38] VITALS: BP_SYST 136; PULSE 78; RESP 16; TEMP 97.6; O2SAT 98
[2022-11-03] MEDS: PIPERACILLIN/TAZO 4.5GM/DEX-IS 100 ML IV SCH ×3 (02:26→19:04)
[2022-11-03] MEDS: ACETAMINOPHEN I.V. 1000 MG 100 ML IV PRN ×3 (04:52→20:26)
[2022-11-03] MEDS: metroNIDAZOLE 500 mg/NS 100 ML IV SCH ×3 (05:27→22:22)
[2022-11-03] MEDS: D5/0.45 NS 1,000 ML IV SCH ×3 (05:29→16:30)
[2022-11-03 07:17] LABS: BASOPHILS % (AUTO) 0.4 % (0.0-2.0); EOSINOPHILS # (AUTO) 0.5 K/uL (0.0-0.4); EOSINOPHILS % (AUTO) 4.2 % (0.0-4.0); HEMATOCRIT 35.8 % (36-54); HEMOGLOBIN 11.6 g/dL (14.0-18.0); LYMPHOCYTES # (AUTO) 1.9 K/uL (1.0-5.5); LYMPHOCYTES % (AUTO) 17.2 % (20.5-51.5); MEAN CORPUSCULAR HEMOGLOBIN 29 pg (27-31); MEAN CORPUSCULAR HGB CONC 33 % (32-36); MEAN CORPUSCULAR VOLUME 89 fL (79.0-98.0); MONOCYTES % (AUTO) 8.6 % (1.7-9.3); NEUTROPHILS # (AUTO) 7.7 K/uL (1.8-7.7); NEUTROPHILS % (AUTO) 69.6 % (40.0-70.0); PLATELET COUNT (AUTO) 276 K/uL (130-430); RED BLOOD CELL COUNT(AUTO) 4.04 MIL/uL (4.2-6.2); RED CELL DISTRIBUTION WIDTH 15.1 % (9.0-15.0); WHITE BLOOD COUNT (AUTO) 11.1 K/uL (4.8-10.8)
[2022-11-03 07:32] LABS: CALCIUM 8.2 mg/dL (8.4-11.0); CREATININE 1.08 mg/dL (0.55-1.30)
--- NOTE | 2022-11-03 07:59 | NUR ---
OPENING NOTES: PATIENT IN BED WITH EYES OPENED. RESPONDED TO NAME. BREATHING IS EVEN AND UNLABORED ON RA 98%. NO S/S OF DISTRESS OR PAIN NOTED. BROUGHT PATIENT ICE CHIPS. ALL NEEDS MET AT THIS TIME, SAFETY CHECKS MADE AND CALL LIGHT WITHIN REACH.
[2022-11-03 08:00] VITALS: BP_SYST 135; PULSE 65; RESP 15; TEMP 97.5; O2SAT 98
[2022-11-03 08:03] LABS: ERYTHROCYTE SEDIMENTATION RATE 59 MM/HR (0-15)
[2022-11-03] MEDS ORDERED: *TPN PER PHARMACY XX PRN (09:00)
[2022-11-03] MEDS ORDERED: DEXTROSE 50% JECT 50 ML DISP.SYRIN IVP PRN (09:00)
[2022-11-03] MEDS: FAMOTIDINE PF 20 MG/2 ML VIAL IVP SCH ×2 (09:46→20:26)
[2022-11-03 11:04] VITALS: O2SAT 98
[2022-11-03 12:00] VITALS: BP_SYST 142; PULSE 75; RESP 16; TEMP 97.6; O2SAT 97
[2022-11-03 16:00] VITALS: BP_SYST 138; PULSE 63; RESP 18; TEMP 97.6; O2SAT 97
--- NOTE | 2022-11-03 16:22 | NUR ---
DR SÁNCHEZ AT PATIENT BEDSIDE TALKING WITH PATIENT.
[2022-11-03] MEDS: FLUCONAZOLE 200 mg/ NS 100 ML IV SCH (17:07)
--- NOTE | 2022-11-03 18:20 | NUR ---
CLOSING NOTES: PATIENT SITTING IN CHAIR NEXT TO BED. NO S/S OF DISTRESS OR PAIN REPORTED. BREATHING IS EVEN AND UNLABORED ON RA 97%. ALL NEEDS MET AT THIS TIME, SAFETY CHECKS MADE AND CALL LIGHT WITHIN REACH. WILL ENDORSE TO MICROELECTRONICS ENGINEER NURSE.
[2022-11-03 20:05] VITALS: BP_SYST 156; PULSE 99; RESP 18; TEMP 97.3; O2SAT 99
--- NOTE | 2022-11-03 20:05 | NUR ---
Opening notes Pt AAOx4, VSS, afebrile. No s/s distress noted. Pt states he is passing gas and had a BM today. TPN/PPN to start tonight. Call light within reach. Bed low, locked, siderails up x2. To monitor.
[2022-11-03] MEDS ORDERED: SODIUM ACETATE IV SCH ×9 (21:00)
[2022-11-03] MEDS ORDERED: K PHOS IV SCH ×9 (21:00)
[2022-11-03] MEDS ORDERED: POTASSIUM ACETATE IV SCH ×9 (21:00)
[2022-11-03] MEDS ORDERED: [UNRECOGNIZED DRUG - OTHER] IV SCH ×9 (21:00)
[2022-11-03] MEDS ORDERED: TPN CENTRAL IV SCH ×9 (21:00)
[2022-11-03] MEDS: TEMAZEPAM 15 MG CAPSULE PO PRN (22:22)
[2022-11-04 00:31] VITALS: BP_SYST 152; PULSE 70; RESP 18; TEMP 97.7; O2SAT 98
[2022-11-04] MEDS: PIPERACILLIN/TAZO 4.5GM/DEX-IS 100 ML IV SCH ×3 (03:04→17:12)
[2022-11-04] MEDS: ACETAMINOPHEN I.V. 1000 MG 100 ML IV PRN ×4 (03:05→21:48)
[2022-11-04] MEDS: D5/0.45 NS 1,000 ML IV SCH (03:20)
--- NOTE | 2022-11-04 06:14 | NUR ---
Closing notes Pt asleep, easily awakens, no s/s distress. BS checked 169, PPN infusing at ordered rate TRACEY midline. Call light within reach. Bed low, locked, siderails up x2. Safety maintained. To endorse to AM nurse.
[2022-11-04] MEDS: metroNIDAZOLE 500 mg/NS 100 ML IV SCH ×3 (06:15→23:01)
[2022-11-04] MEDS: INSULIN REGULAR, HUMAN 100 UNITS/ML, 3 ML VIAL (humuLIN R) SUBCUT PRN (06:20)
[2022-11-04 08:00] VITALS: O2SAT 99
[2022-11-04 08:47] LABS: BASOPHILS % (AUTO) 0.4 % (0.0-2.0); EOSINOPHILS # (AUTO) 0.4 K/uL (0.0-0.4); EOSINOPHILS % (AUTO) 3.3 % (0.0-4.0); HEMATOCRIT 33.6 % (36-54); LYMPHOCYTES # (AUTO) 1.7 K/uL (1.0-5.5); LYMPHOCYTES % (AUTO) 14.9 % (20.5-51.5); MEAN CORPUSCULAR HEMOGLOBIN 29 pg (27-31); MEAN CORPUSCULAR HGB CONC 33 % (32-36); MEAN CORPUSCULAR VOLUME 89 fL (79.0-98.0); MONOCYTES # (AUTO) 0.7 K/uL (0.0-1.0); MONOCYTES % (AUTO) 6.5 % (1.7-9.3); NEUTROPHILS # (AUTO) 8.6 K/uL (1.8-7.7); NEUTROPHILS % (AUTO) 74.9 % (40.0-70.0); PLATELET COUNT (AUTO) 278 K/uL (130-430); RED BLOOD CELL COUNT(AUTO) 3.77 MIL/uL (4.2-6.2); RED CELL DISTRIBUTION WIDTH 14.9 % (9.0-15.0); WHITE BLOOD COUNT (AUTO) 11.5 K/uL (4.8-10.8)
[2022-11-04 08:55] LABS: CREATININE 1.01 mg/dL (0.55-1.30); PHOSPHORUS 3.1 mg/dL (2.7-4.5)
[2022-11-04 08:59] LABS: ERYTHROCYTE SEDIMENTATION RATE 51 MM/HR (0-15)
[2022-11-04] MEDS ORDERED: KCL 40 mEq in 100 mL (PREMIX) 100 ML IV ONE (09:15)
[2022-11-04 09:18] VITALS: BP_SYST 143; PULSE 66; RESP 20; TEMP 97.3; O2SAT 97
[2022-11-04] MEDS: FAMOTIDINE PF 20 MG/2 ML VIAL IVP SCH ×2 (09:25→21:47)
--- NOTE | 2022-11-04 11:08 | NUR ---
Nutrition F/U RD reviewed pts current EMR including diet hx, physician notes, nursing notes, pertinent labs/meds/procedures, care trends and care activity. Admitting Diagnosis Diverticulitis Subjective Information TPN per pharmacy recd 11/03/[address] called pharmacy to relay recommendations. RD suggested lipids for this pt. Pharmacist said he would look at the case and see if it was appropriate. RD s/w pt RNEun regarding pt condition. Eun reports that pt was started on TPN yesterday. Eun reports that pt is likely to have abdominal surgery within the next week to repair the perforation. Per EMR review: pt abd distended, firm w/ active bowel sounds; LABS: WBC 11.5 H, K+ 3.3 L, BUN 7 L, BG 137 H, TG 143 WNL ; BP trending high (143/78 H); pt on room air, temperature trending low (97.3 L). Pt is not meeting nutritional needs at this time. Current Diet Order/Nutrition Support NPO x 10 days & TPN: D30, AA8.5% @ 42mL/hr via midline Provides: 1008mL total volume, 685 kcal, 43g PRO; GIR: 1.1 mg/kg/min Meets: 29% of lower est kcal, 45% of lower est PRO needs % PO intake NPO Last BM 11/03 x 1 Estimated Energy Expenditure (kcals/day) 4497-1168 (25-30 kcal/kg CBW d/t GERIAT maintenance) Estimated Protein Required (g/day) 95-114 (1-1.2 gm/kg CBW d/t GERIAT maintenance) Estimated Fluid Required (l/day) 2.4-2.9 (1 ml/kcal/day for GERIAT maintenance) Problem/Etiology/Signs/Symptoms Complicated GI function R/T pathophysiological factors AEB NPO status and Dx of perforated diverticulitis. *ongoing Expected Outcomes/Goals - Monitor provision of alternative nutrition support w/ goal of pt meeting 50% of estimated nutritional needs, labs trending WNL, normal GI function, and skin integrity/wt maintenance Dietitian Recommendations * Increase TPN rate and add lipids, if medically appropriate: D30, AA 8.5% @ 90mL/hr & 20%ILE @5mL/hr via central line Provides: 2280mL volume, 1709 kcal, 92 g PRO; GIR 2.4 mg/kg/min Meets: 72% of lower est kcal, 97% lower est PRO, 95% of lower est fluid needs Follow up *High risk: f/u in 2-3 days JOB, MPH, RD
--- NOTE | 2022-11-04 11:09 | NUR ---
Dietitian Recommendations * Increase TPN rate and add lipids, if medically appropriate: D30, AA 8.5% @ 90mL/hr & 20%ILE @5mL/hr via central line Provides: 2280mL volume, 1709 kcal, 92 g PRO; GIR 2.4 mg/kg/min Meets: 72% of lower est kcal, 97% lower est PRO, 95% of lower est fluid needs GS, MPH, RD Please refer to Nutrition F/U for further details. Thanks!
[2022-11-04 12:00] VITALS: BP_SYST 126; PULSE 72; RESP 18; TEMP 97.6; O2SAT 97
[2022-11-04 16:00] VITALS: BP_SYST 152; PULSE 69; RESP 18; TEMP 97.3; O2SAT 96
[2022-11-04] MEDS: FLUCONAZOLE 200 mg/ NS 100 ML IV SCH (17:12)
--- NOTE | 2022-11-04 20:08 | NUR ---
CONTINUE PLAN OF CARE. SURGERY DELAYED UNTIL THIS COMING SATURDAY PER PATIENT REQUEST. CONTINUES ON ALL ANTIBIOTIC'S, PPN BS'S . ABLE TO GET SELF UP OUT OF BED AND AMBULATE TO TOILET. [employer] PRICING CONSULTANT COMMENTED WILL SART PATIENT ON LIPIDS TOMORROW. REMAINS NPO WITH SMALL AMOUNT OF ICE CHIPS.
[2022-11-04 20:35] VITALS: BP_SYST 139; PULSE 66; RESP 17; TEMP 97.5; O2SAT 98
[2022-11-04] MEDS ORDERED: SODIUM ACETATE IV SCH ×9 (21:00)
[2022-11-04] MEDS ORDERED: POTASSIUM CHLORIDE IV SCH ×9 (21:00)
[2022-11-04] MEDS ORDERED: K PHOS IV SCH ×9 (21:00)
[2022-11-04] MEDS ORDERED: [UNRECOGNIZED DRUG - OTHER] IV SCH ×9 (21:00)
[2022-11-04] MEDS ORDERED: TPN CENTRAL IV SCH ×9 (21:00)
[2022-11-04] MEDS: TEMAZEPAM 15 MG CAPSULE PO PRN (21:47)
[2022-11-05] VITALS: BP_SYST 122; PULSE 61; RESP 16; TEMP 97.2; O2SAT 95
[2022-11-05] MEDS: PIPERACILLIN/TAZO 4.5GM/DEX-IS 100 ML IV SCH ×3 (02:40→17:22)
[2022-11-05 05:44] LABS: BASOPHILS % (AUTO) 0.4 % (0.0-2.0); EOSINOPHILS # (AUTO) 0.3 K/uL (0.0-0.4); EOSINOPHILS % (AUTO) 2.8 % (0.0-4.0); HEMATOCRIT 34.6 % (36-54); HEMOGLOBIN 11.3 g/dL (14.0-18.0); LYMPHOCYTES # (AUTO) 1.8 K/uL (1.0-5.5); LYMPHOCYTES % (AUTO) 16.3 % (20.5-51.5); MEAN CORPUSCULAR HEMOGLOBIN 29 pg (27-31); MEAN CORPUSCULAR HGB CONC 33 % (32-36); MEAN CORPUSCULAR VOLUME 89 fL (79.0-98.0); MONOCYTES # (AUTO) 0.8 K/uL (0.0-1.0); MONOCYTES % (AUTO) 7.7 % (1.7-9.3); NEUTROPHILS # (AUTO) 7.9 K/uL (1.8-7.7); NEUTROPHILS % (AUTO) 72.8 % (40.0-70.0); PLATELET COUNT (AUTO) 291 K/uL (130-430); RED CELL DISTRIBUTION WIDTH 14.7 % (9.0-15.0); WHITE BLOOD COUNT (AUTO) 10.9 K/uL (4.8-10.8)
[2022-11-05 05:53] LABS: ERYTHROCYTE SEDIMENTATION RATE 52 MM/HR (0-15)
[2022-11-05] MEDS: ACETAMINOPHEN I.V. 1000 MG 100 ML IV PRN ×3 (06:01→22:22)
[2022-11-05 06:16] LABS: ALBUMIN 2.4 g/dL (3.4-4.8); CALCIUM 7.9 mg/dL (8.4-11.0); CREATININE 1.03 mg/dL (0.55-1.30); TOTAL BILIRUBIN 0.5 mg/dL (0.0-1.0)
[2022-11-05] MEDS: metroNIDAZOLE 500 mg/NS 100 ML IV SCH ×3 (06:37→21:43)
[2022-11-05 07:00] VITALS: BP_SYST 135; PULSE 60; RESP 18; TEMP 97.1; O2SAT 98
[2022-11-05 08:00] VITALS: BP_SYST 135; PULSE 60; RESP 18; TEMP 97.1; O2SAT 98
[2022-11-05] MEDS: FAMOTIDINE PF 20 MG/2 ML VIAL IVP SCH ×2 (09:20→21:43)
--- NOTE | 2022-11-05 13:26 | NUR ---
CONSULTATION PAGED REASON FOR CONSULTATION: CARDIAC CLEARANCE WAS CONSULT CALLED? Y PERSON WHO WAS NOTIFIED: RICHELLE CONSULTING PHYSICIAN: FINN KITCHEN SILK SCREEN PRINTER HELPER SPECIALTY: CARDIO SILK SCREEN PRINTER HELPER PHONE NUMBER: [phone] REQUESTING PHYSICIAN: MJ FELTON
[2022-11-05 16:00] VITALS: BP_SYST 130; TEMP 97.8
[2022-11-05] MEDS: FLUCONAZOLE 200 mg/ NS 100 ML IV SCH (16:37)
[2022-11-05 19:55] VITALS: BP_SYST 136; PULSE 70; RESP 18; TEMP 97.2; O2SAT 96
--- NOTE | 2022-11-05 19:55 | NUR ---
RECEIVED PT IN BED, AOX4, EVEN AND UNLABORED RESPIRATION, ON ROOM AIR, DENIED ANY ISSUE OR PAIN ATT, D51/2NS AT 100MLS TO TRACEY X2, TPN AT 60.34 TO TRACEY, WILL CONTINUE WITH POC
[2022-11-05] MEDS ORDERED: TPN CENTRAL IV SCH ×9 (21:00)
[2022-11-05] MEDS ORDERED: [UNRECOGNIZED DRUG - OTHER] IV SCH ×9 (21:00)
[2022-11-05] MEDS ORDERED: SODIUM ACETATE IV SCH ×9 (21:00)
[2022-11-05] MEDS ORDERED: K PHOS IV SCH ×9 (21:00)
[2022-11-05] MEDS ORDERED: POTASSIUM CHLORIDE IV SCH ×9 (21:00)
--- NOTE | 2022-11-05 21:26 | NUR ---
Paged Dr. Coffey Joseph
[2022-11-06 00:40] VITALS: BP_SYST 133; PULSE 63; RESP 18; TEMP 97.7; O2SAT 94
[2022-11-06] MEDS: PIPERACILLIN/TAZO 4.5GM/DEX-IS 100 ML IV SCH ×3 (01:52→18:20)
[2022-11-06] MEDS: ACETAMINOPHEN I.V. 1000 MG 100 ML IV PRN ×3 (05:38→17:13)
[2022-11-06 05:39] LABS: BASOPHILS # (AUTO) 0.1 K/uL (0.0-0.2); BASOPHILS % (AUTO) 0.6 % (0.0-2.0); EOSINOPHILS # (AUTO) 0.3 K/uL (0.0-0.4); EOSINOPHILS % (AUTO) 2.4 % (0.0-4.0); HEMATOCRIT 35.1 % (36-54); HEMOGLOBIN 11.1 g/dL (14.0-18.0); LYMPHOCYTES # (AUTO) 2.1 K/uL (1.0-5.5); LYMPHOCYTES % (AUTO) 18.3 % (20.5-51.5); MEAN CORPUSCULAR HEMOGLOBIN 28 pg (27-31); MEAN CORPUSCULAR HGB CONC 32 % (32-36); MEAN CORPUSCULAR VOLUME 90 fL (79.0-98.0); MONOCYTES # (AUTO) 0.9 K/uL (0.0-1.0); MONOCYTES % (AUTO) 7.5 % (1.7-9.3); NEUTROPHILS # (AUTO) 8.3 K/uL (1.8-7.7); NEUTROPHILS % (AUTO) 71.2 % (40.0-70.0); PLATELET COUNT (AUTO) 302 K/uL (130-430); RED BLOOD CELL COUNT(AUTO) 3.92 MIL/uL (4.2-6.2); RED CELL DISTRIBUTION WIDTH 14.7 % (9.0-15.0); WHITE BLOOD COUNT (AUTO) 11.6 K/uL (4.8-10.8)
[2022-11-06] MEDS: metroNIDAZOLE 500 mg/NS 100 ML IV SCH ×3 (05:42→21:37)
--- NOTE | 2022-11-06 06:29 | NUR ---
PT IN BED, AOX4, EVEN AND UNLABORED RESPIRATION, ON ROOM AIR, DENIED ANY SOB, CP, N/V OR PAIN ATT, D51/2NS AT 100MLS TO TRACEY X2, TPN AT 60.34 TO TRACEY, AMBULATORY TO BATHROOM W/O ASSIST, NPO THROUGHOUT SHIFT, NO CHANGES DURING SHIFT, WILL ENDORSE TO AM SHIFT
[2022-11-06 06:38] LABS: ALBUMIN 2.4 g/dL (3.4-4.8); CALCIUM 8.3 mg/dL (8.4-11.0); CREATININE 1.01 mg/dL (0.55-1.30); PHOSPHORUS 3.3 mg/dL (2.7-4.5); TOTAL BILIRUBIN 0.4 mg/dL (0.0-1.0)
[2022-11-06 07:00] VITALS: O2SAT 96
[2022-11-06 08:00] VITALS: BP_SYST 147; PULSE 60; RESP 20; TEMP 99.1; O2SAT 97
[2022-11-06] MEDS ORDERED: GOLYTELY / COLYTE SOLUTION 4 LITERS PO ONE (11:00)
[2022-11-06 11:48] VITALS: BP_SYST 139; PULSE 60; RESP 18; TEMP 97; O2SAT 100
[2022-11-06] MEDS: FAMOTIDINE PF 20 MG/2 ML VIAL IVP SCH ×2 (12:10→21:37)
[2022-11-06 16:00] VITALS: BP_SYST 135; PULSE 61; RESP 18; TEMP 97.3; O2SAT 100
[2022-11-06] MEDS: FLUCONAZOLE 200 mg/ NS 100 ML IV SCH (16:15)
--- NOTE | 2022-11-06 18:30 | NUR ---
Mr Fernández has been assessed as indicated. He has been successfully treated for pain with IV PRN meds. 2x this. He has TPN and antibiotics as well as IVF via left arm midline. He tolerates these well. He ambulates to the restroom with no assistance. He has been given the 1000ml of golytle. He has completed about 500ml. He was unable to tolerate completing this in 10-15 minutes as it was ordered. He has been visited by friends and family. He has been made aware that his surgery is planned for 729 on . He is starting to pass stools. no c/o of being distended or nauseated. He is resting quietly at this time.
--- NOTE | 2022-11-06 19:15 | NUR ---
Handoff has been given to Lisa
[2022-11-06 20:05] VITALS: BP_SYST 135; PULSE 63; RESP 18; TEMP 97.4; O2SAT 100
[2022-11-06] MEDS ORDERED: TPN CENTRAL IV SCH ×10 (21:00)
[2022-11-06] MEDS ORDERED: SODIUM ACETATE IV SCH ×10 (21:00)
[2022-11-06] MEDS ORDERED: [UNRECOGNIZED DRUG - OTHER] IV SCH ×10 (21:00)
[2022-11-06] MEDS ORDERED: POTASSIUM CHLORIDE IV SCH ×10 (21:00)
[2022-11-06] MEDS ORDERED: K PHOS IV SCH ×10 (21:00)
[2022-11-07] VITALS: BP_SYST 152; PULSE 66; RESP 18; TEMP 97.9; O2SAT 97
[2022-11-07] MEDS: ACETAMINOPHEN I.V. 1000 MG 100 ML IV PRN ×4 (00:09→18:47)
[2022-11-07] MEDS: PIPERACILLIN/TAZO 4.5GM/DEX-IS 100 ML IV SCH ×3 (02:53→17:38)
[2022-11-07 05:06] LABS: BASOPHILS # (AUTO) 0.1 K/uL (0.0-0.2); BASOPHILS % (AUTO) 0.7 % (0.0-2.0); EOSINOPHILS # (AUTO) 0.3 K/uL (0.0-0.4); HEMATOCRIT 33.1 % (36-54); HEMOGLOBIN 10.8 g/dL (14.0-18.0); LYMPHOCYTES # (AUTO) 1.9 K/uL (1.0-5.5); LYMPHOCYTES % (AUTO) 16.3 % (20.5-51.5); MEAN CORPUSCULAR HEMOGLOBIN 29 pg (27-31); MEAN CORPUSCULAR HGB CONC 33 % (32-36); MEAN CORPUSCULAR VOLUME 89 fL (79.0-98.0); MONOCYTES # (AUTO) 1.1 K/uL (0.0-1.0); MONOCYTES % (AUTO) 9.3 % (1.7-9.3); NEUTROPHILS # (AUTO) 8.2 K/uL (1.8-7.7); NEUTROPHILS % (AUTO) 70.7 % (40.0-70.0); PLATELET COUNT (AUTO) 313 K/uL (130-430); RED BLOOD CELL COUNT(AUTO) 3.72 MIL/uL (4.2-6.2); RED CELL DISTRIBUTION WIDTH 14.8 % (9.0-15.0); WHITE BLOOD COUNT (AUTO) 11.5 K/uL (4.8-10.8)
[2022-11-07 05:54] LABS: ALBUMIN 2.4 g/dL (3.4-4.8); CALCIUM 8.2 mg/dL (8.4-11.0); CREATININE 1.01 mg/dL (0.55-1.30); PHOSPHORUS 2.9 mg/dL (2.7-4.5); TOTAL BILIRUBIN 0.4 mg/dL (0.0-1.0)
[2022-11-07] MEDS: metroNIDAZOLE 500 mg/NS 100 ML IV SCH ×3 (05:55→21:19)
--- NOTE | 2022-11-07 05:56 | NUR ---
Closing notes Pt asleep, easily awakens, no s/s distress. Pt on continuous PPN infusing at 70ml/hr TRACEY midline. Pt states he had several stools, yellow and watery. Pt tolerated bowel prep. BS checked 111. Call light/items within reach. To endorse to AM nurse.
--- NOTE | 2022-11-07 08:00 | NUR ---
OPENING NOTES: RECEIVED BEDSIDE SBAR FROM PM SHIFT NURSE, NO S/S OF ANY DISTRESS, NON LABOR BREATHING ABLE TO MAKE ALL NEEDS KNOWN, BED AT LOW AND LOCKED POSITION CALL LIGHT IN REACH, ALL SAFETY CHECKS DONE AND WILL DO THOUGHT THE DAY, WILL MONITOR AND GIVE MEDS PER ORDERS.
[2022-11-07] MEDS: FAMOTIDINE PF 20 MG/2 ML VIAL IVP SCH ×2 (09:15→21:19)
[2022-11-07 10:38] VITALS: BP_SYST 152; PULSE 77; RESP 18; TEMP 97.5; O2SAT 99
--- NOTE | 2022-11-07 12:17 | NUR ---
BLANK CONSENT IN CHART DOCTOR STILL NEEDS TO CHAT WITH PATIENT ABOUT SURGERY
[2022-11-07 14:14] VITALS: O2SAT 98
[2022-11-07] MEDS ORDERED: NEOMYCIN SULFATE 500 MG TABLET PO ONE ×3 (15:00→22:00)
[2022-11-07] MEDS: FLUCONAZOLE 200 mg/ NS 100 ML IV SCH (16:08)
[2022-11-07 17:53] VITALS: BP_SYST 147; PULSE 58; RESP 16; TEMP 97.8; O2SAT 99
--- NOTE | 2022-11-07 18:50 | NUR ---
CLOSING NOTES: PATIENT REMAINED STABLE THOUGHT THE DAY, NO S/S OF ANY DISTRESS, NON LABOR BREATHING, ALL NEEDS WHERE MET TODAY, BED AT LOW AND LOCKED POSITION CALL LIGHT IN REACH, RESTING IN BED WATCHING TV, WILL GIVE PM SHIFT NURSE BEDSIDE SBAR.
[2022-11-07 20:30] VITALS: BP_SYST 144; PULSE 67; RESP 18; TEMP 98.3; O2SAT 97
[2022-11-07] MEDS ORDERED: POTASSIUM CHLORIDE IV SCH ×10 (21:00)
[2022-11-07] MEDS ORDERED: SODIUM ACETATE IV SCH ×10 (21:00)
[2022-11-07] MEDS ORDERED: K PHOS IV SCH ×10 (21:00)
[2022-11-07] MEDS ORDERED: TPN CENTRAL IV SCH ×10 (21:00)
[2022-11-07] MEDS ORDERED: [UNRECOGNIZED DRUG - OTHER] IV SCH ×10 (21:00)
--- NOTE | 2022-11-07 22:00 | NUR ---
Peg THOMAS for consent order Paged and spoke with Dr. Hayden to obtain order for surgical consent. Will carry out.
--- NOTE | 2022-11-07 22:03 | NUR ---
Peg Hayden s/w Cortes.
[2022-11-08] VITALS (15 sets, daily range): BP systolic 102–132; PULSE 62–73; RESP 15–38; TEMP 97.2–98.8; O2SAT 3–98
[2022-11-08] MEDS: ACETAMINOPHEN I.V. 1000 MG 100 ML IV PRN ×2 (00:30→06:19)
[2022-11-08] MEDS: PIPERACILLIN/TAZO 4.5GM/DEX-IS 100 ML IV SCH ×3 (03:14→18:08)
[2022-11-08 05:54] LABS: BASOPHILS # (AUTO) 0.1 K/uL (0.0-0.2); BASOPHILS % (AUTO) 0.7 % (0.0-2.0); EOSINOPHILS # (AUTO) 0.3 K/uL (0.0-0.4); EOSINOPHILS % (AUTO) 2.7 % (0.0-4.0); HEMATOCRIT 33.8 % (36-54); HEMOGLOBIN 10.9 g/dL (14.0-18.0); LYMPHOCYTES # (AUTO) 1.8 K/uL (1.0-5.5); LYMPHOCYTES % (AUTO) 15.7 % (20.5-51.5); MEAN CORPUSCULAR HEMOGLOBIN 29 pg (27-31); MEAN CORPUSCULAR HGB CONC 32 % (32-36); MEAN CORPUSCULAR VOLUME 89 fL (79.0-98.0); MONOCYTES # (AUTO) 1.2 K/uL (0.0-1.0); MONOCYTES % (AUTO) 9.9 % (1.7-9.3); NEUTROPHILS # (AUTO) 8.3 K/uL (1.8-7.7); PLATELET COUNT (AUTO) 369 K/uL (130-430); RED BLOOD CELL COUNT(AUTO) 3.82 MIL/uL (4.2-6.2); RED CELL DISTRIBUTION WIDTH 14.9 % (9.0-15.0); WHITE BLOOD COUNT (AUTO) 11.7 K/uL (4.8-10.8)
[2022-11-08 06:10] LABS: ERYTHROCYTE SEDIMENTATION RATE 54 MM/HR (0-15)
[2022-11-08] MEDS: metroNIDAZOLE 500 mg/NS 100 ML IV SCH ×2 (06:20→13:57)
[2022-11-08 06:23] LABS: ALBUMIN 2.4 g/dL (3.4-4.8); CALCIUM 8.2 mg/dL (8.4-11.0); CREATININE 1.08 mg/dL (0.55-1.30); TOTAL BILIRUBIN 0.4 mg/dL (0.0-1.0)
--- NOTE | 2022-11-08 06:39 | NUR ---
Closing notes/Consent Pt wanted to sign surgical consent with at bedside. came at bedside. Pt had CHG bath. PPN infusing at 80cc/hr TRACEY midline. Blood sugar checked and WNL. Call light within reach. To endorse to AM nurse.
[2022-11-08] MEDS ORDERED: BUPIVACAINE /PF 0.5% 30 ML VIAL ONE (07:30)
[2022-11-08] MEDS ORDERED: SUGAMMADEX SODIUM 200 MG/2 ML VIAL IV ONE (07:30)
[2022-11-08] MEDS ORDERED: SUCCINYLCHOLINE CHLORIDE 20 MG/ML(QUELICIN) ONE (07:30)
[2022-11-08] MEDS ORDERED: MEPERIDINE 50 MG/ML VIAL ONE (07:30)
[2022-11-08] MEDS ORDERED: LR 1,000 ML IV.SOLN IV ONE (07:30)
[2022-11-08] MEDS ORDERED: SEVOFLURANE 15 MIN GAS INH ONE (07:30)
[2022-11-08] MEDS ORDERED: PROPOFOL 200MG/ 20ML VIAL (DIPRIVAN) IV ONE (07:30)
[2022-11-08] MEDS ORDERED: DEXAMETHASONE SOD PHOSPHATE 4 MG/ML VIAL ONE (07:30)
[2022-11-08] MEDS ORDERED: fentaNYL CITRATE/PF 100 MCG/2 ML AMP ONE (07:30)
[2022-11-08] MEDS ORDERED: ROCURONIUM BROMIDE 10 MG/ML (ZEMURON) ONE (07:30)
[2022-11-08] MEDS ORDERED: ONDANSETRON HCL 4 MG/2 ML VIAL ONE (07:30)
[2022-11-08] MEDS ORDERED: NS IRRIG SOLN 1000 ML IR ONE (07:30)
--- NOTE | 2022-11-08 07:43 | NUR ---
PATIENT OFF THE FLOOR TO SURGERY.
[2022-11-08] MEDS ORDERED: ONDANSETRON HCL 4 MG/2 ML VIAL IVP PRN (08:00)
[2022-11-08] MEDS ORDERED: HYDROmorphone 1 MG/ML INJ. CARTRIDGE IVP PRN (08:00)
[2022-11-08] MEDS ORDERED: KETOROLAC TROMETHAMINE 30 MG VIAL IVP PRN ×2 (08:00→10:00)
[2022-11-08] MEDS ORDERED: MEPERIDINE HCL/PF 25 MG/ML DISP.SYRIN IVP PRN (08:00)
[2022-11-08] MEDS ORDERED: LR 1,000 ML IV SCH (08:00)
[2022-11-08] MEDS ORDERED: METOCLOPRAMIDE HCL 10 MG/2 ML VIAL IVP PRN (08:00)
--- NOTE | 2022-11-08 08:00 | NUR ---
RN NOTES PATIENT STILL ON THE VENT, ON 30% FIO2, O2 SAT IS GOOD. SINUS RHYTHM ON THE MONITOR. SAWYER FEEDING HELD, OGT RESIDUAL 100ML Addendum: 11/08/22 at 2006 by Miryam Palomo RN WRONG PATIENT .
[2022-11-08] MEDS ORDERED: BUPIVACAINE LIPOSOME/PF 266 MG/20 ML VIAL INFIL ONE (08:03)
[2022-11-08] MEDS: FAMOTIDINE PF 20 MG/2 ML VIAL IVP SCH ×2 (09:00→21:37)
[2022-11-08] MEDS ORDERED: ACETAMINOPHEN I.V. 1000 MG 100 ML IV ONE ×3 (09:51→10:45)
[2022-11-08] MEDS ORDERED: NALOXONE HCL 0.4 MG/ML AMP (NARCAN) IVP PRN (10:00)
--- NOTE | 2022-11-08 10:00 | NUR ---
CAMILLE NOTES HEMODIALYSIS IN PROGRESS. Addendum: 11/08/22 at 2007 by Miryam Palomo RN ERROR. WRONG PATIENT
[2022-11-08] MEDS: HYDROmorphone 1 MG/ML INJ. CARTRIDGE ONE ×2 (10:20→10:30)
[2022-11-08] MEDS ORDERED: metroNIDAZOLE 500 mg/NS 100 ML IV SCH (10:30)
[2022-11-08] MEDS ORDERED: KETOROLAC TROMETHAMINE 30 MG VIAL ONE (10:45)
--- NOTE | 2022-11-08 10:50 | NUR ---
RN NOTES TRANSFER FROM PACU S/P EXPLOR LAP, BOWEL RESECTION BY DR. GAINES. PATIENT SEEN DROWSY BUT AROUSABLE, O2 AT 3L/MIN VIA NC, SPO2 99% ABDOMINAL DRESSINGS IS DRY AND INTACT WITH A LAINE DRAIN IN PLACE. VITALS CHECKED AND RECORDED. SINUS RHYTHM ON THE MONITOR. WILL CONTINUE TO MONITOR PT.
[2022-11-08] MEDS ORDERED: [UNRECOGNIZED DRUG - OTHER] IV SCH ×18 (11:47→21:00)
[2022-11-08] MEDS ORDERED: SODIUM ACETATE IV SCH ×18 (11:47→21:00)
[2022-11-08] MEDS ORDERED: POTASSIUM ACETATE IV SCH ×18 (11:47→21:00)
[2022-11-08] MEDS ORDERED: K PHOS IV SCH ×18 (11:47→21:00)
[2022-11-08] MEDS ORDERED: TPN CENTRAL IV SCH ×18 (11:47→21:00)
[2022-11-08] MEDS: D5/0.45 NS 1,000 ML IV SCH ×2 (12:00→20:00)
[2022-11-08] MEDS: HYDROmorphone 1 MG/ML INJ. CARTRIDGE IVP PRN ×3 (13:20→22:28)
--- NOTE | 2022-11-08 13:20 | NUR ---
RN NOTES COMPLAINED OF PAIN ON THE POST OP SITE, SCALE OF 7/10 MEDICATED WITH DILAUDID FOR COMFORT.
--- NOTE | 2022-11-08 14:00 | NUR ---
RN NOTES APPEARS COMFORTABLE. VITALS STABLE
--- NOTE | 2022-11-08 15:43 | NUR ---
>>>PT NOTES<<< HOLD PT TODAY PER RN, PATIENT IS S/P EXPLOR LAP. WILL FOLLOW UP TOMORROW, 11/09/22.
--- NOTE | 2022-11-08 16:00 | NUR ---
RN NOTES INCENTIVE SPIROMETRY AT 2000ML
[2022-11-08] MEDS: FLUCONAZOLE 200 mg/ NS 100 ML IV SCH (16:48)
--- NOTE | 2022-11-08 17:11 | NUR ---
Nutrition F/U RD reviewed pts current EMR including diet hx, physician notes, nursing notes, pertinent labs/meds/procedures, care trends and care activity. Admitting Diagnosis Diverticulitis Subjective Information RD spoke w/ pharmD regarding recs for TPN support -- pharmD appreciative and acknowledged. RD attended LOS meeting this morning -- pt in OR for Sx today. Per review, pt had exploratory laparotomy, bowel resection. Per EMR review, pt has bilat generalized edema; Elmer score: 17 w/ anterior Sx abd incision noted. Current Diet Order/Nutrition Support NPO x13 days & TPN D30%, AA8.5% at 80 ml/hr via central line % PO intake NPO Last BM last BM x20 7/5 (bowel prep for Sx) Estimated Energy Expenditure (kcals/day) 5802-6697 (30-35 kcal/kg CBW d/t GERIAT maintenance, Sx healing) Estimated Protein Required (g/day) 114-143 (1-1.2 gm/kg CBW d/t GERIAT maintenance, Sx healing) Estimated Fluid Required (l/day) 2.8-3.3 (1 ml/kcal/day for GERIAT maintenance) Problem/Etiology/Signs/Symptoms Complicated GI function R/T pathophysiological factors AEB NPO status and Dx of perforated diverticulitis. *Improving w/ TPN support Expected Outcomes/Goals - Monitor provision of alternative nutrition support w/ goal of pt meeting 50% of estimated nutritional needs, labs trending WNL, normal GI function, and skin integrity/wt maintenance Dietitian Recommendations * TPN D30%, AA8.5% at 90 mm/hr (goal rate), IL20% at 5 ml/hr via central line Provides: 2280mL volume/day, 1709 kcal/day, 92 gm protein/day, and GIR: 2.4 mg/kg/min Meets: 60% of lower est kcal, 81% lower est PRO, 80% of lower est fluid needs Follow up * High Risk: RD to F/U in 2-3 days
--- NOTE | 2022-11-08 17:19 | NUR ---
Dietitian Recommendations * TPN D30%, AA8.5% at 90 mm/hr (goal rate), IL20% at 5 ml/hr via central line Provides: 2280mL volume/day, 1709 kcal/day, 92 gm protein/day, and GIR: 2.4 mg/kg/min Meets: 60% of lower est kcal, 81% lower est PRO, 80% of lower est fluid needs LP, MS, RD Please refer to Nutrition F/U for details.
--- NOTE | 2022-11-08 18:00 | NUR ---
[place]LE NOTES PM CARE DONE, CHG BATH RENDERED, PATIENT REPOSITIONED FOR COMFORT. Addendum: 11/08/22 at 2006 by Miryam Palomo RN ERROE. WRONG PATIENT
[2022-11-08] MEDS: INSULIN REGULAR, HUMAN 100 UNITS/ML, 3 ML VIAL (humuLIN R) SUBCUT PRN (18:15)
--- NOTE | 2022-11-08 18:30 | NUR ---
RN NOTES COMPLAINED OF PAIN ON THE POST OP SITE, SCALE OF 7/10. MEDICATED WITH DILAUDID 1MF IVP. PATIENT REPOSITIONED FOR COMFORT. LAINE DRAIN INTACT.
--- NOTE | 2022-11-08 20:00 | NUR ---
ASSESSMENT Abdomen soft swollen, dressing dry and intact. Bowel sounds present left upper & lower quadrants. Bowel sounds hypoactive right upper & lower quadrants.
[2022-11-08] MEDS: FAT EMULSIONS 250 ML IV SCH (21:59)
[2022-11-09] VITALS (25 sets, daily range): BP systolic 99–146; PULSE 58–74; RESP 12–37; TEMP 97.8–98.6; O2SAT 94–98
[2022-11-09] MEDS: INSULIN REGULAR, HUMAN 100 UNITS/ML, 3 ML VIAL (humuLIN R) SUBCUT PRN ×4 (01:02→18:37)
[2022-11-09] MEDS: PIPERACILLIN/TAZO 4.5GM/DEX-IS 100 ML IV SCH ×3 (01:46→18:24)
[2022-11-09] MEDS: HYDROmorphone 1 MG/ML INJ. CARTRIDGE IVP PRN ×6 (04:21→23:40)
[2022-11-09 05:20] LABS: BASOPHILS % (AUTO) 0.2 % (0.0-2.0); HEMATOCRIT 32.6 % (36-54); HEMOGLOBIN 10.5 g/dL (14.0-18.0); LYMPHOCYTES # (AUTO) 1.1 K/uL (1.0-5.5); LYMPHOCYTES % (AUTO) 6.8 % (20.5-51.5); MEAN CORPUSCULAR HEMOGLOBIN 29 pg (27-31); MEAN CORPUSCULAR HGB CONC 32 % (32-36); MEAN CORPUSCULAR VOLUME 89 fL (79.0-98.0); MONOCYTES # (AUTO) 1.2 K/uL (0.0-1.0); MONOCYTES % (AUTO) 7.5 % (1.7-9.3); NEUTROPHILS # (AUTO) 13.3 K/uL (1.8-7.7); NEUTROPHILS % (AUTO) 85.5 % (40.0-70.0); PLATELET COUNT (AUTO) 375 K/uL (130-430); RED BLOOD CELL COUNT(AUTO) 3.68 MIL/uL (4.2-6.2); RED CELL DISTRIBUTION WIDTH 14.7 % (9.0-15.0); WHITE BLOOD COUNT (AUTO) 15.6 K/uL (4.8-10.8)
[2022-11-09 05:43] LABS: ALBUMIN 2.2 g/dL (3.4-4.8); CREATININE 1.08 mg/dL (0.55-1.30); PHOSPHORUS 2.8 mg/dL (2.7-4.5); TOTAL BILIRUBIN 0.3 mg/dL (0.0-1.0)
--- NOTE | 2022-11-09 06:50 | NUR ---
DR LIANA Hayden called inquiring about the Pt. Decreased IVFs ok by Dr Hayden.
[2022-11-09] MEDS: D5/0.45 NS 1,000 ML IV SCH (07:46)
--- NOTE | 2022-11-09 08:00 | NUR ---
MD VISIT DR. GAINES AT BEDSIDE. PLAN OF CARE DISCUSSED TO PATIENT.
[2022-11-09] MEDS: FAMOTIDINE PF 20 MG/2 ML VIAL IVP SCH ×2 (08:46→21:54)
--- NOTE | 2022-11-09 11:30 | NUR ---
RN NOTES PT AT BEDSIDE FOR EVAL AND TX (POST OP)
[2022-11-09] MEDS: FLUCONAZOLE 200 mg/ NS 100 ML IV SCH (18:23)
[2022-11-09] MEDS ORDERED: TPN CENTRAL IV SCH ×10 (21:00)
[2022-11-09] MEDS ORDERED: [UNRECOGNIZED DRUG - OTHER] IV SCH ×10 (21:00)
[2022-11-09] MEDS ORDERED: K PHOS IV SCH ×10 (21:00)
[2022-11-09] MEDS ORDERED: POTASSIUM ACETATE IV SCH ×10 (21:00)
[2022-11-09] MEDS: FAT EMULSIONS 250 ML IV SCH (21:00)
[2022-11-09] MEDS ORDERED: SODIUM ACETATE IV SCH ×10 (21:00)
--- NOTE | 2022-11-09 21:00 | NUR ---
TPN not found from Pharmacy supply. D 10 W started by protocol until Pharmacy available to provide new bag.
[2022-11-10] VITALS (22 sets, daily range): BP systolic 111–149; PULSE 61–80; RESP 12–47; TEMP 97.9–98.8; O2SAT 93–99
[2022-11-10] MEDS: D5/0.45 NS 1,000 ML IV SCH ×2 (00:34→20:06)
[2022-11-10] MEDS: PIPERACILLIN/TAZO 4.5GM/DEX-IS 100 ML IV SCH ×3 (01:44→17:25)
[2022-11-10] MEDS ORDERED: DIPHENHYDRAMINE INJ 50 MG/ML VIAL ONE (02:52)
[2022-11-10] MEDS ORDERED: DIPHENHYDRAMINE INJ 50 MG/ML VIAL IVP PRN (03:00)
--- NOTE | 2022-11-10 03:00 | NUR ---
Dr Angeles Coffey contacted. Patient c/o generalized itching which started "around 1800". Orders received for Benadryl 50 mg IVP Q 6 hrs PRN.
[2022-11-10 06:11] LABS: BASOPHILS # (AUTO) 0.1 K/uL (0.0-0.2); BASOPHILS % (AUTO) 0.5 % (0.0-2.0); EOSINOPHILS # (AUTO) 0.1 K/uL (0.0-0.4); MEAN CORPUSCULAR HEMOGLOBIN 29 pg (27-31); MEAN CORPUSCULAR HGB CONC 32 % (32-36); MEAN CORPUSCULAR VOLUME 89 fL (79.0-98.0); MONOCYTES # (AUTO) 1.2 K/uL (0.0-1.0)
[2022-11-10 06:31] LABS: ALBUMIN 2.3 g/dL (3.4-4.8); CALCIUM 8.3 mg/dL (8.4-11.0); CREATININE 1.04 mg/dL (0.55-1.30); PHOSPHORUS 2.9 mg/dL (2.7-4.5); TOTAL BILIRUBIN 0.3 mg/dL (0.0-1.0)
[2022-11-10 07:16] LABS: ERYTHROCYTE SEDIMENTATION RATE 51 MM/HR (0-15)
--- NOTE | 2022-11-10 07:30 | NUR ---
Report received from nightshift RN. Patient awake in bed AO4, report of pain at 8/10 and given 1 mg of Dilaudid. NC at 2 L/min, D10W at 90 ml/hr, D5 1/2 NS at 50 mL/hr, and lipids at 5 mL/hr.
[2022-11-10] MEDS: HYDROmorphone 1 MG/ML INJ. CARTRIDGE IVP PRN ×5 (07:37→22:00)
[2022-11-10 07:51] LABS: HEMATOCRIT 32.4 % (36-54); HEMOGLOBIN 10.4 g/dL (14.0-18.0); LYMPHOCYTES # (AUTO) 2.2 K/uL (1.0-5.5); LYMPHOCYTES % (AUTO) 17.1 % (20.5-51.5); MONOCYTES % (AUTO) 9.6 % (1.7-9.3); NEUTROPHILS % (AUTO) 71.8 % (40.0-70.0); PLATELET COUNT (AUTO) 431 K/uL (130-430); RED BLOOD CELL COUNT(AUTO) 3.65 MIL/uL (4.2-6.2); RED CELL DISTRIBUTION WIDTH 14.8 % (9.0-15.0)
[2022-11-10 07:53] LABS: WHITE BLOOD COUNT (AUTO) 12.6 K/uL (4.8-10.8)
[2022-11-10] MEDS: FAMOTIDINE PF 20 MG/2 ML VIAL IVP SCH ×2 (09:18→23:31)
[2022-11-10] MEDS: FLUCONAZOLE 200 mg/ NS 100 ML IV SCH (16:04)
--- NOTE | 2022-11-10 19:19 | NUR ---
REPORT GIVEN AND CARE ENDORSED TO NIGHTSHIFT RN
--- NOTE | 2022-11-10 21:00 | NUR ---
ASSESSMENT Pt c/o abdominal pain R/T unable to pass flatulence. Pt medicated per MD order. No c/o nausea, dressing dry & intact. Abdomen tender & distended. LAINE right Lower quadrant draining pink miryam drainage. [place] cath draining yellow color urine. Pt encouraged to use IS, Pt able to get it to 1500ml.
[2022-11-10] MEDS: FAT EMULSIONS 250 ML IV SCH (21:55)
[2022-11-10] MEDS: NA PHOS IV SCH ×9 (21:56)
[2022-11-10] MEDS: SODIUM CHLORIDE IV SCH ×9 (21:56)
[2022-11-10] MEDS: [UNRECOGNIZED DRUG - OTHER] IV SCH ×9 (21:56)
[2022-11-10] MEDS: TPN CENTRAL IV SCH ×9 (21:56)
[2022-11-11] VITALS (16 sets, daily range): BP systolic 104–163; PULSE 68–94; RESP 14–29; TEMP 96.7–97.9; O2SAT 91–99
--- NOTE | 2022-11-11 00:25 | NUR ---
CHANGE IN CAREGIVER Report given to Grisel OBRIEN
--- NOTE | 2022-11-11 00:27 | NUR ---
report received from kevyn so. pt resting in bed with stable VS, will continue to monitor
[2022-11-11] MEDS: ACETAMINOPHEN I.V. 1000 MG 100 ML IV PRN (00:41)
[2022-11-11] MEDS: PIPERACILLIN/TAZO 4.5GM/DEX-IS 100 ML IV SCH ×3 (00:43→18:01)
[2022-11-11] MEDS: HYDROmorphone 1 MG/ML INJ. CARTRIDGE IVP PRN ×7 (03:52→22:08)
[2022-11-11 05:27] LABS: BASOPHILS # (AUTO) 0.1 K/uL (0.0-0.2); BASOPHILS % (AUTO) 1.1 % (0.0-2.0); EOSINOPHILS # (AUTO) 0.4 K/uL (0.0-0.4); EOSINOPHILS % (AUTO) 3.2 % (0.0-4.0); HEMOGLOBIN 11.3 g/dL (14.0-18.0); LYMPHOCYTES % (AUTO) 17.7 % (20.5-51.5); MEAN CORPUSCULAR HEMOGLOBIN 29 pg (27-31); MEAN CORPUSCULAR HGB CONC 32 % (32-36); MEAN CORPUSCULAR VOLUME 89 fL (79.0-98.0); MONOCYTES # (AUTO) 1.3 K/uL (0.0-1.0); MONOCYTES % (AUTO) 11.4 % (1.7-9.3); NEUTROPHILS # (AUTO) 7.6 K/uL (1.8-7.7); NEUTROPHILS % (AUTO) 66.6 % (40.0-70.0); PLATELET COUNT (AUTO) 437 K/uL (130-430); RED BLOOD CELL COUNT(AUTO) 3.95 MIL/uL (4.2-6.2); RED CELL DISTRIBUTION WIDTH 14.7 % (9.0-15.0); WHITE BLOOD COUNT (AUTO) 11.4 K/uL (4.8-10.8)
[2022-11-11 05:38] LABS: ERYTHROCYTE SEDIMENTATION RATE 57 MM/HR (0-15)
[2022-11-11 05:45] LABS: CALCIUM 8.4 mg/dL (8.4-11.0); CREATININE 1.15 mg/dL (0.55-1.30); PHOSPHORUS 3.7 mg/dL (2.7-4.5)
--- NOTE | 2022-11-11 07:30 | NUR ---
RECEIVED REPORT FROM NIGHTSHIFT RN PATIENT AWAKE AND ALERT IN BED. NC AT 2 L/MIN, TPN @ 90 ML/HR, LIPIDS @ 5 ML/HR, D5 1/2 NS @ 50 ML/HR. PATIENT REMAINS STABLE AND IN SIMILAR CONDITION YESTERDAY. DR ARRON PRADO AT BEDSIDE CURRENTLY.
[2022-11-11] MEDS: FAMOTIDINE PF 20 MG/2 ML VIAL IVP SCH ×2 (09:12→20:57)
--- NOTE | 2022-11-11 10:44 | NUR ---
Notes: 10:41 Dr. Angeles Coffey paged in regards to downgrading patient to Med-Surg or Tele. 10:44 Dr. Angeles Coffey returned page and informed me that a patient downgrade will be up to the surgeon not him.
--- NOTE | 2022-11-11 10:49 | NUR ---
Notes: 10:47 Dr. Hayden's exchange called to request downgrade for patient, per Angeles Junior. 10:49 Exchange [address] me that Dr. Hayden is in surgery and will return the call after he is finished. Waiting for further instructions from doctor.
[2022-11-11] MEDS: INSULIN REGULAR, HUMAN 100 UNITS/ML, 3 ML VIAL (humuLIN R) SUBCUT PRN ×2 (11:54→18:11)
--- NOTE | 2022-11-11 12:08 | NUR ---
Nutrition F/U RD reviewed pts current EMR including diet hx, physician notes, nursing notes, pertinent labs/meds/procedures, care trends and care activity. Admitting Diagnosis Diverticulitis Subjective Information 11/11 [facility] Progress Note: pt is stable for downgrade to tely; encouraged to do more walking. If pt has BM, his diet can be advanced RD rounded to ICU and s/w RN. He said that pt is doing well but still experiencing gas pain, with no BM yet. RN said that his BG is well-controlled and that he did not need insulin at all yesterday. RD witnessed TPN running at goal rate (90mL/hr) and lipids at goal (5mL/hr). RN said that pt will likely be downgraded within the next day or 2. Per EMR review, pt has bilat generalized 1+ non-pitting edema; Elmer score: 19 w/ anterior Sx abd incision noted; abd distended, firm w/ hypoactive bowel sounds. Pt is likely not meeting nutritional needs at this time. Current Diet Order/Nutrition Support NPO x 16 days & TPN D30%, AA8.5% at 90 ml/hr; 20%ILE @ 5mL/hr via central line % PO intake NPO Last BM last BM x20 11/07 (bowel prep for Sx) Estimated Energy Expenditure (kcals/day) 9680-4083 (30-35 kcal/kg CBW d/t GERIAT maintenance, Sx healing) Estimated Protein Required (g/day) 114-143 (1-1.2 gm/kg CBW d/t GERIAT maintenance, Sx healing) Estimated Fluid Required (l/day) 2.8-3.3 (1 ml/kcal/day for GERIAT maintenance) Problem/Etiology/Signs/Symptoms Complicated GI function R/T pathophysiological factors AEB NPO status and Dx of perforated diverticulitis. *Improving w/ TPN support Expected Outcomes/Goals - Monitor provision of alternative nutrition support w/ goal of pt meeting 50% of estimated nutritional needs, labs trending WNL, normal GI function, and skin integrity/wt maintenance Dietitian Recommendations * TPN D30%, AA8.5% at 90 mm/hr (goal rate), IL20% at 5 ml/hr via central line Provides: 2280mL volume/day, 1709 kcal/day, 92 gm protein/day, and GIR: 2.4 mg/kg/min Meets: 60% of lower est kcal, 81% lower est PRO, 80% of lower est fluid needs * Advance diet when medically appropriate. Goal: GI soft diet Follow up * High Risk: RD to F/U in 2-3 days GS, MPH, RD
--- NOTE | 2022-11-11 12:11 | NUR ---
Dietitian Recommendations * TPN D30%, AA8.5% at 90 mm/hr (goal rate), IL20% at 5 ml/hr via central line Provides: 2280mL volume/day, 1709 kcal/day, 92 gm protein/day, and GIR: 2.4 mg/kg/min Meets: 60% of lower est kcal, 81% lower est PRO, 80% of lower est fluid needs * Advance diet when medically appropriate. Goal: GI soft diet GS, MPH, RD Please refer to Nutrition F/U for further details. Thanks!
--- NOTE | 2022-11-11 14:04 | NUR ---
RN NOTES TRANSFERRED TO [facility], [place] IN STABLE CONDITION, REPORT GIVEN CAMILLE AVENDAÑO
--- NOTE | 2022-11-11 15:05 | NUR ---
SURGEON VISIT/ROUNDS Pt seen by Dr. Hayden, pt continues to have hypoactive bowel sounds, pt mostly c/o gas pains. Plan of care for the afternoon discussed-will ambulate pt after next pain medication given. Noted dressing to abd clean, dry and intact with abd binder in place. Noted LAINE drain with light pink drainage noted. Pt on TPN and Lipids via TRACEY midline. Pt's at bedside. Call light within reach.
[2022-11-11] MEDS: D5/0.45 NS 1,000 ML IV SCH (16:06)
[2022-11-11] MEDS: FLUCONAZOLE 200 mg/ NS 100 ML IV SCH (17:59)
--- NOTE | 2022-11-11 19:35 | NUR ---
CLOSING NOTE Pt resting quietly in bed with no s/s resp distress, no c/o pain or discomfort. IVF infusing well at ordered rate with no s/s infiltration to site. TPN and Lipids infusing well to TRACEY midline at ordered rate with no s/s infiltration to site. LAINE drain remains in place. Miguel draining to gravity.Dr. Hayden stated to D/C the miguel tomorrow. Endorsed care to next shift nurse.All precautions remain in place. Call light within reach.
[2022-11-11] MEDS: NA PHOS IV SCH ×9 (20:59)
[2022-11-11] MEDS: TPN CENTRAL IV SCH ×9 (20:59)
[2022-11-11] MEDS: [UNRECOGNIZED DRUG - OTHER] IV SCH ×9 (20:59)
[2022-11-11] MEDS: SODIUM CHLORIDE IV SCH ×9 (20:59)
[2022-11-11] MEDS: FAT EMULSIONS 250 ML IV SCH (21:00)
--- NOTE | 2022-11-11 22:55 | NUR ---
RECEIVED PT LYING IN BED, NO DISTRESS NOTED, C./O ABD DISCOMFORT PT STATES HE IS EXPERIENCING GAS PAIN. PT IS REFUSING TO WALK AT THIS TIME. TPN, LIPIDS, AND IVF INFUSING TO DOUBLE LUMEN LT UPPER ARM MIDLINE, SITE CDI. ABD FIRM AND DISTENDED NO N./V. ABD DRSG WITH MINIMAL PINK DRAINAGE NOTED. ABD BINDER IN PLACE. LAINE TO RT ABD MILKED TUBING DRAINING SEROSANGUINEOUS DRAINAGE. F./C DRAINING CLEAR TEA COLOR URINE. SECURITY DEVICE IN PLACE. PT REFUSING SCDs AT THIS TIME ENCOURAGED TO DO PLANTARFLEXION AND DORSIFLEXION, VERBALIZED UNDERSTANDING. PT REFUSED BED BATH./SPONGE BATH. AT THIS TIME Addendum: 11/12/22 at 0107 by Jamila Pro RN REPORT GIVEN TO ANNE-MARIE OBRIEN
[2022-11-12] MEDS: INSULIN REGULAR, HUMAN 100 UNITS/ML, 3 ML VIAL (humuLIN R) SUBCUT PRN ×2 (00:38→06:54)
--- NOTE | 2022-11-12 01:00 | NUR ---
pt.re-assigned.luisa;rn conveyed pt's report/data.pt.presents s/p surgery:abdomen dsg intact.j-bridges x1 location rlq;abdomen.intact;patent.luisa has administered dilaudid;1mg ivp@this hour.i am to f/u w pain medication assessment. call light/telephone w/in access of the pt.
[2022-11-12] MEDS: HYDROmorphone 1 MG/ML INJ. CARTRIDGE IVP PRN ×9 (01:04→22:05)
[2022-11-12 01:47] VITALS: BP_SYST 119; PULSE 83; RESP 17; TEMP 98.4; O2SAT 95
[2022-11-12] MEDS: PIPERACILLIN/TAZO 4.5GM/DEX-IS 100 ML IV SCH ×3 (02:31→18:36)
--- NOTE | 2022-11-12 03:00 | NUR ---
zofran:4mg ivp administered.to assess the efficacy of the medication per policy.
[2022-11-12] MEDS: ONDANSETRON HCL 4 MG/2 ML VIAL IVP PRN (03:08)
--- NOTE | 2022-11-12 04:00 | NUR ---
pt.assessed.pt.requested medication dilaudid:1mg ivp administered to assess the efficacy of the pain medication pain mgx protocol.pt.capable to reposition self.call light/telephone w/in access of the pt.
[2022-11-12 05:25] LABS: ERYTHROCYTE SEDIMENTATION RATE 64 MM/HR (0-15)
[2022-11-12 05:30] LABS: BASOPHILS # (AUTO) 0.1 K/uL (0.0-0.2); BASOPHILS % (AUTO) 0.8 % (0.0-2.0); EOSINOPHILS # (AUTO) 0.5 K/uL (0.0-0.4); EOSINOPHILS % (AUTO) 3.6 % (0.0-4.0); HEMATOCRIT 35.8 % (36-54); HEMOGLOBIN 11.7 g/dL (14.0-18.0); LYMPHOCYTES % (AUTO) 15.9 % (20.5-51.5); MEAN CORPUSCULAR HEMOGLOBIN 29 pg (27-31); MEAN CORPUSCULAR HGB CONC 33 % (32-36); MEAN CORPUSCULAR VOLUME 88 fL (79.0-98.0); MONOCYTES # (AUTO) 1.5 K/uL (0.0-1.0); MONOCYTES % (AUTO) 12.2 % (1.7-9.3); NEUTROPHILS # (AUTO) 8.5 K/uL (1.8-7.7); NEUTROPHILS % (AUTO) 67.5 % (40.0-70.0); PLATELET COUNT (AUTO) 442 K/uL (130-430); RED BLOOD CELL COUNT(AUTO) 4.05 MIL/uL (4.2-6.2); RED CELL DISTRIBUTION WIDTH 14.7 % (9.0-15.0); WHITE BLOOD COUNT (AUTO) 12.5 K/uL (4.8-10.8)
[2022-11-12 06:00] LABS: ALBUMIN 2.2 g/dL (3.4-4.8); CALCIUM 8.1 mg/dL (8.4-11.0); CREATININE 0.96 mg/dL (0.55-1.30); PHOSPHORUS 3.2 mg/dL (2.7-4.5); TOTAL BILIRUBIN 0.7 mg/dL (0.0-1.0)
--- NOTE | 2022-11-12 06:45 | NUR ---
pt.assessed.pt.requested pain medication.blood glucose assessed value;157mg/dl.insulin;regular;2-u administered. nolan ponce assessed volumes recorded.call light/telephone placed w/in access of the pt.
[2022-11-12 08:00] VITALS: BP_SYST 138; PULSE 79; RESP 17; TEMP 98.4; O2SAT 96
[2022-11-12] MEDS: SIMETHICONE 80 MG TAB.CHEW PO SCH ×3 (09:00→22:06)
[2022-11-12] MEDS ORDERED: MINERAL OIL 30 ML UDC PO ONE (10:15)
[2022-11-12] MEDS ORDERED: DIATR MEGLU/DIATRIZ SOD 30 ML SOLUTION PO ONE (10:27)
[2022-11-12] MEDS: FAMOTIDINE PF 20 MG/2 ML VIAL IVP SCH ×2 (10:43→22:06)
[2022-11-12 11:32] VITALS: BP_SYST 144; PULSE 74; RESP 20; TEMP 98.2; O2SAT 99
[2022-11-12] MEDS: D5/0.45 NS 1,000 ML IV SCH (12:06)
--- NOTE | 2022-11-12 14:44 | NUR ---
PATIENT REFUSED PT TREATMENT TODAY STATING HE HAS A LOT GOING ON TODAY. WILL TRY AGAIN TOMORROW.
[2022-11-12] MEDS: ACETAMINOPHEN I.V. 1000 MG 100 ML IV PRN (15:45)
[2022-11-12 16:39] VITALS: BP_SYST 148; PULSE 90; RESP 18; TEMP 97.8; O2SAT 100
[2022-11-12] MEDS: FLUCONAZOLE 200 mg/ NS 100 ML IV SCH (16:49)
[2022-11-12] MEDS: METOCLOPRAMIDE HCL 10 MG/2 ML VIAL IVP SCH (18:51)
[2022-11-12 19:00] VITALS: BP_SYST 122; PULSE 92; RESP 16; TEMP 98.5; O2SAT 96
[2022-11-12] MEDS ORDERED: NA PHOS IV SCH ×9 (21:00)
[2022-11-12] MEDS ORDERED: TPN CENTRAL IV SCH ×9 (21:00)
[2022-11-12] MEDS ORDERED: SODIUM CHLORIDE IV SCH ×9 (21:00)
[2022-11-12] MEDS ORDERED: [UNRECOGNIZED DRUG - OTHER] IV SCH ×9 (21:00)
[2022-11-12] MEDS: FAT EMULSIONS 250 ML IV SCH (21:12)
--- NOTE | 2022-11-12 21:26 | NUR ---
Continue's to have lots of pain requesting pain medication around the clock. today's test result's good no further problem. Started on gas tablets IVP Reglan and increased patients walking for bloating and gas problem. Remains on TPN, lipid's and antibiotic therapy
[2022-11-13] VITALS (7 sets, daily range): BP systolic 125–161; PULSE 78–104; RESP 18–20; TEMP 96.6–98.6; O2SAT 96–100
[2022-11-13] MEDS: METOCLOPRAMIDE HCL 10 MG/2 ML VIAL IVP SCH ×4 (00:16→18:05)
[2022-11-13] MEDS: ACETAMINOPHEN I.V. 1000 MG 100 ML IV PRN ×2 (00:18→09:14)
[2022-11-13] MEDS: INSULIN REGULAR, HUMAN 100 UNITS/ML, 3 ML VIAL (humuLIN R) SUBCUT PRN ×3 (00:53→13:14)
[2022-11-13] MEDS: HYDROmorphone 1 MG/ML INJ. CARTRIDGE IVP PRN ×7 (02:32→22:11)
[2022-11-13] MEDS: PIPERACILLIN/TAZO 4.5GM/DEX-IS 100 ML IV SCH ×3 (02:33→18:06)
[2022-11-13 05:58] LABS: BASOPHILS # (AUTO) 0.1 K/uL (0.0-0.2); BASOPHILS % (AUTO) 0.5 % (0.0-2.0); EOSINOPHILS # (AUTO) 0.5 K/uL (0.0-0.4); EOSINOPHILS % (AUTO) 3.4 % (0.0-4.0); HEMATOCRIT 34.2 % (36-54); HEMOGLOBIN 11.4 g/dL (14.0-18.0); LYMPHOCYTES # (AUTO) 1.1 K/uL (1.0-5.5); LYMPHOCYTES % (AUTO) 8.6 % (20.5-51.5); MEAN CORPUSCULAR HEMOGLOBIN 29 pg (27-31); MEAN CORPUSCULAR HGB CONC 33 % (32-36); MEAN CORPUSCULAR VOLUME 88 fL (79.0-98.0); MONOCYTES # (AUTO) 1.5 K/uL (0.0-1.0); NEUTROPHILS # (AUTO) 10.2 K/uL (1.8-7.7); NEUTROPHILS % (AUTO) 76.5 % (40.0-70.0); PLATELET COUNT (AUTO) 425 K/uL (130-430); RED BLOOD CELL COUNT(AUTO) 3.88 MIL/uL (4.2-6.2); RED CELL DISTRIBUTION WIDTH 14.4 % (9.0-15.0); WHITE BLOOD COUNT (AUTO) 13.3 K/uL (4.8-10.8)
[2022-11-13 06:54] LABS: ALBUMIN 2.3 g/dL (3.4-4.8); CALCIUM 8.3 mg/dL (8.4-11.0); CREATININE 0.93 mg/dL (0.55-1.30); PHOSPHORUS 2.4 mg/dL (2.7-4.5); TOTAL BILIRUBIN 0.6 mg/dL (0.0-1.0)
[2022-11-13 08:24] LABS: ERYTHROCYTE SEDIMENTATION RATE 69 MM/HR (0-15)
[2022-11-13] MEDS: SIMETHICONE 80 MG TAB.CHEW PO SCH ×3 (09:01→21:04)
[2022-11-13] MEDS: FAMOTIDINE PF 20 MG/2 ML VIAL IVP SCH ×2 (09:02→21:04)
[2022-11-13] MEDS: MINERAL OIL 30 ML UDC PO SCH (09:02)
[2022-11-13] MEDS: D5/0.45 NS 1,000 ML IV SCH (10:00)
--- NOTE | 2022-11-13 14:22 | NUR ---
pt a&o, vss. @ bedside. tpn and ivf infusing as ordered. prn dilaudid given for pain as needed. krishna drain draining serous fluid. miguel patent and voiding well. walked well w/ PT. asked MD about diet order and said pt to remain npo.
[2022-11-13] MEDS: FLUCONAZOLE 200 mg/ NS 100 ML IV SCH (16:01)
--- NOTE | 2022-11-13 16:40 | NUR ---
PHYSICAL THERAPY CO-SIGN The Physical Therapy Progress Notes documented by Soaking Room Operator have been reviewed. Reviewed/Co-Signed by: Fernando Mai Documentation Done by:MARIAA ROWAN Addendum: 11/13/22 at 1641 by Fernando Mai PT Amended: Links added.
--- NOTE | 2022-11-13 19:15 | NUR ---
INITIAL NOTES; endorsed by day shift. S/P Ex- lap/ colon resection, post op 5 days. pt. was just medicated with IV Dilaudid for c/o post op abdominal pain. call light within reach.
[2022-11-13] MEDS: FAT EMULSIONS 250 ML IV SCH (20:59)
[2022-11-13] MEDS ORDERED: NA PHOS IV SCH ×9 (21:00)
[2022-11-13] MEDS ORDERED: TPN CENTRAL IV SCH ×9 (21:00)
[2022-11-13] MEDS ORDERED: [UNRECOGNIZED DRUG - OTHER] IV SCH ×9 (21:00)
[2022-11-13] MEDS ORDERED: SODIUM CHLORIDE IV SCH ×9 (21:00)
--- NOTE | 2022-11-13 21:15 | NUR ---
NOTES: due medications given. kept NPO except ice chips. IV TPN and Lipids changed vi left upper arm midline.on nurse monitoring and shows sinus rhythm.abdomen pretty distended, abdominal dressing intact and binder. miguel cath to osd. Julita bridges x 1. came at bedside. instructed on Incentive spirometer and deep breathing exercise. HOB elevated. O2 @ 2 liters per nc. call light within reach.
--- NOTE | 2022-11-13 22:15 | NUR ---
NOTES: pt. medicated with IV dilaudid for c/o post op abdominal pain/ 02/12. repositioned self.
--- NOTE | 2022-11-13 22:50 | NUR ---
NOTES: pt. ambulated out in the hallway with a walker and accompanied by his , tolerated well. pt. verbalized that he is passing gas after. reconnect IVF. pain less after pain medication.
[2022-11-14] MEDS: METOCLOPRAMIDE HCL 10 MG/2 ML VIAL IVP SCH ×5 (00:09→23:46)
[2022-11-14] MEDS: INSULIN REGULAR, HUMAN 100 UNITS/ML, 3 ML VIAL (humuLIN R) SUBCUT PRN ×3 (00:13→12:13)
--- NOTE | 2022-11-14 01:20 | NUR ---
NOTES: pt. c/o post op abdominal and medicated with IV Dilaudid. repositioned self.
[2022-11-14] MEDS: PIPERACILLIN/TAZO 4.5GM/DEX-IS 100 ML IV SCH (01:26)
[2022-11-14] MEDS: HYDROmorphone 1 MG/ML INJ. CARTRIDGE IVP PRN ×8 (01:54→23:45)
--- NOTE | 2022-11-14 02:01 | NUR ---
NOTES: pt. dozing on and off, easily awakened.
[2022-11-14] MEDS: D5/0.45 NS 1,000 ML IV SCH ×2 (04:14→11:35)
--- NOTE | 2022-11-14 04:17 | NUR ---
NOTES: pt. awakened if he is in pain but ask to come back at 5 am. went back to sleep.
--- NOTE | 2022-11-14 04:45 | NUR ---
NOTES: pt. called, cannot wait for 5 am, medicated with IV Dilaudid s ordered for c/o post op abdominal pain.
[2022-11-14 06:22] LABS: BASOPHILS # (AUTO) 0.1 K/uL (0.0-0.2); BASOPHILS % (AUTO) 1.3 % (0.0-2.0); EOSINOPHILS # (AUTO) 0.6 K/uL (0.0-0.4); EOSINOPHILS % (AUTO) 5.9 % (0.0-4.0); HEMATOCRIT 31.8 % (36-54); HEMOGLOBIN 10.5 g/dL (14.0-18.0); LYMPHOCYTES # (AUTO) 1.6 K/uL (1.0-5.5); LYMPHOCYTES % (AUTO) 15.1 % (20.5-51.5); MEAN CORPUSCULAR HEMOGLOBIN 29 pg (27-31); MEAN CORPUSCULAR HGB CONC 33 % (32-36); MEAN CORPUSCULAR VOLUME 87 fL (79.0-98.0); MONOCYTES # (AUTO) 1.3 K/uL (0.0-1.0); MONOCYTES % (AUTO) 11.8 % (1.7-9.3); NEUTROPHILS # (AUTO) 7.1 K/uL (1.8-7.7); NEUTROPHILS % (AUTO) 65.9 % (40.0-70.0); PLATELET COUNT (AUTO) 362 K/uL (130-430); RED BLOOD CELL COUNT(AUTO) 3.64 MIL/uL (4.2-6.2); RED CELL DISTRIBUTION WIDTH 14.6 % (9.0-15.0); WHITE BLOOD COUNT (AUTO) 10.8 K/uL (4.8-10.8)
--- NOTE | 2022-11-14 06:39 | NUR ---
CLOSING NOTES; pt. asleep, awakened for BS checked 158 with sliding scale coverage. IV TPN/Lipids infusing via left arm midline. miguel cath intact. and J bridges x1, drained 60 cc. serous. for further care and observation. call light at bedside. HOB elevated, able to reposition self. will endorse to incoming shift.
[2022-11-14 06:40] LABS: ERYTHROCYTE SEDIMENTATION RATE 65 MM/HR (0-15)
[2022-11-14 06:41] LABS: ALBUMIN 2.1 g/dL (3.4-4.8); CALCIUM 8.2 mg/dL (8.4-11.0); CREATININE 0.87 mg/dL (0.55-1.30); TOTAL BILIRUBIN 0.7 mg/dL (0.0-1.0)
[2022-11-14] MEDS ORDERED: PIPERACILLIN/TAZO 4.5GM/DEX-IS 100 ML IV SCH (07:45)
[2022-11-14 08:00] VITALS: BP_SYST 138; PULSE 91; RESP 20; TEMP 97; O2SAT 97
--- NOTE | 2022-11-14 08:00 | NUR ---
pt A/Ox4,vss,resting well in bed,abdominal incision with dressing on dry and intact LAINE drain x1 in right abd with pink serosanguinous drainage noted.NPO except ice and po meds,on continuous TPN runs 92 cc per hr and lipids runs 5cc per hr via midline in left upper arm,needs attended,call light & personal items within pt reach safety maintained.
[2022-11-14 08:10] VITALS: PULSE 94; O2SAT 96
[2022-11-14] MEDS: MINERAL OIL 30 ML UDC PO SCH (09:22)
[2022-11-14] MEDS: SIMETHICONE 80 MG TAB.CHEW PO SCH ×3 (09:22→20:46)
[2022-11-14] MEDS: FAMOTIDINE PF 20 MG/2 ML VIAL IVP SCH ×2 (09:23→20:46)
[2022-11-14] MEDS ORDERED: NALOXONE HCL 0.4 MG/ML AMP (NARCAN) IVP PRN (10:15)
[2022-11-14] MEDS ORDERED: OXYCODONE/ACETAMINOPHEN 5-325 TABLET PO PRN (10:15)
[2022-11-14] MEDS ORDERED: HYDROcodone/ACETAMIN 5-325 MG TAB (NORCO/ VICODIN) PO PRN (10:15)
[2022-11-14] MEDS ORDERED: ACETAMINOPHEN 325 MG TABLET PO PRN (10:15)
--- NOTE | 2022-11-14 12:00 | NUR ---
started clear liquid diet per dr order.pt tolerated well.no n/v continue to monitor pt
[2022-11-14 12:48] VITALS: BP_SYST 138; PULSE 78; RESP 18; TEMP 98.2; O2SAT 96
--- NOTE | 2022-11-14 13:59 | NUR ---
Nutrition F/U RD reviewed pts current EMR including diet hx, physician notes, nursing notes, pertinent labs/meds/procedures, care trends and care activity. Admitting Diagnosis Diverticulitis 11/14 ID Progress Notes -- Assessment 1. Perforated diverticulitis s/p expl lap 2. Peritonitis 3. Abd/pelvic abscess 4. Pneumoperitoneum 5. Obesity 6. Post-op ileus Plan Leukocytosis resolved. De-escalate Zosyn to IV Rocephin today. c/w IV Diflucan for now. Persistent post-op ileus. GI t and surgeon to manage. s/p Expl lap and drainage of pelvic abscess .. Plan to Transition to po Levaquin and Diflucan soon. Discussed in detail with family, attending and surgeon. Repeat CT showed improving inflammatory changes. Also showed ?new RLL infiltrate Leukocytosis likely post-op.CRP normal. Cultures negative. Follow intra-op cultures and adjust antibiotics.Negative thus far. Incentive spirometry d/w family and team about ID management. Subjective Information RD visited pt at bedside this afternoon. Pt was awake, alert -- he reported that he has been passing gas, which as been causing immense pain. He has not yet had a BM. Lunch tray seen 25% consumed -- pt reported intakes of broth, tea, and Ensure Clear. He is being mindful of his intakes of sugary foods (gelatin and [place] ice) d/t his increased BG levels. Pt stated he is aware that his diet will be advanced to solid foods once he has a BM. Current Diet Order/Nutrition Support Clear Liquid x0 days & TPN D30%, AA8.5% at 90 ml/hr, IL20% at 5 ml/hr via central line % PO intake 25% x1 RD witnessed meal Last BM last BM x20 7/ (bowel prep for Sx) Estimated Energy Expenditure (kcals/day) 5753-6681 (30-35 kcal/kg CBW d/t GERIAT maintenance, Sx healing) Estimated Protein Required (g/day) 114-143 (1-1.2 gm/kg CBW d/t GERIAT maintenance, Sx healing) Estimated Fluid Required (l/day) 2.8-3.3 (1 ml/kcal/day for GERIAT maintenance) Problem/Etiology/Signs/Symptoms Complicated GI function R/T pathophysiological factors AEB NPO status and Dx of perforated diverticulitis. *Improving w/ TPN support Expected Outcomes/Goals - Monitor provision of alternative nutrition support w/ goal of pt meeting 50% of estimated nutritional needs, labs trending WNL, normal GI function, and skin integrity/wt maintenance Dietitian Recommendations * Continue TPN D30%, AA8.5% at 90 mm/hr (goal rate), IL20% at 5 ml/hr via central line Provides: 2280mL volume/day, 1709 kcal/day, 92 gm protein/day, and GIR: 2.4 mg/kg/min Meets: 60% of lower est kcal, 81% lower est PRO, 80% of lower est fluid needs * Advance diet when medically appropriate. Goal: GI Soft diet (low-fiber/bland) Follow up * High Risk: RD to F/U in 2-3 days
--- NOTE | 2022-11-14 14:08 | NUR ---
Dietitian Recommendations * Continue TPN D30%, AA8.5% at 90 mm/hr (goal rate), IL20% at 5 ml/hr via central line Provides: 2280mL volume/day, 1709 kcal/day, 92 gm protein/day, and GIR: 2.4 mg/kg/min Meets: 60% of lower est kcal, 81% lower est PRO, 80% of lower est fluid needs * Advance diet when medically appropriate. Goal: GI Soft diet (low-fiber/bland) LP, MS, RD Please refer to Nutrition F/U for details.
--- NOTE | 2022-11-14 15:32 | NUR ---
PHYSICAL THERAPY CO-SIGN The Physical Therapy Progress Notes documented by Correctional Program Specialist have been reviewed. Reviewed/Co-Signed by: Fernando Mai Documentation Done by:MARIAA ROWAN Addendum: 11/14/22 at 1533 by Fernando Mai PT Amended: Links added.
--- NOTE | 2022-11-14 16:00 | NUR ---
called and notified of pt condition,KUB done at bedside to follow up post op ileus,pt c/o abdominal pain,give dilaudid 1 mg IV as prn order for pain pt ambulated around the hallway with his family
[2022-11-14 17:23] VITALS: BP_SYST 128; PULSE 111; RESP 18; TEMP 98.5; O2SAT 98
[2022-11-14] MEDS: FLUCONAZOLE 200 mg/ NS 100 ML IV SCH (17:41)
--- NOTE | 2022-11-14 18:00 | NUR ---
called and notified of KUB result,keep pt on sips of clear liquid pt informed and verbalized understandings.hourly rounds made,safety maintained.
--- NOTE | 2022-11-14 19:15 | NUR ---
OPENING NOTE REPORT RECEIVED FROM DAYSHIFT NURSE. PATIENT RECEIVED LYING IN BED, AWAKE, NO S/S OF ACUTE DISTRESS. BREATHING EVEN AND UNLABORED. HOB RAISED. IVF INFUSING WELL. IV SITE PATENT, NO SIGNS OF INFILTRATION OR INFECTION NOTED. CALL LIGHT WITH PATIENT. BED IS LOCKED AND AT LOWEST POSITION. WILL CONTINUE TO MONITOR.
[2022-11-14 20:00] VITALS: BP_SYST 141; PULSE 100; RESP 18; TEMP 97.4; O2SAT 98
[2022-11-14] MEDS: FAT EMULSIONS 250 ML IV SCH (20:47)
[2022-11-14] MEDS ORDERED: TPN CENTRAL IV SCH ×9 (21:00)
[2022-11-14] MEDS ORDERED: SODIUM CHLORIDE IV SCH ×9 (21:00)
[2022-11-14] MEDS ORDERED: NA PHOS IV SCH ×9 (21:00)
[2022-11-14] MEDS ORDERED: [UNRECOGNIZED DRUG - OTHER] IV SCH ×9 (21:00)
--- NOTE | 2022-11-14 23:00 | NUR ---
ROUNDS PATIENT IN BED, RESTING. NO SIGNS OF DISCOMFORT. CHEST RISE AND FALL EVEN BILATERALLY. ALL NEEDS MET. WILL MONITOR.
[2022-11-15] VITALS: BP_SYST 134; PULSE 98; RESP 18; TEMP 97.6; O2SAT 98
[2022-11-15] MEDS: HYDROmorphone 1 MG/ML INJ. CARTRIDGE IVP PRN ×7 (02:50→21:50)
--- NOTE | 2022-11-15 03:00 | NUR ---
ROUNDS NO CHANGE IN CONDITION. ALL NEEDS MET. WILL MONITOR.
[2022-11-15] MEDS: METOCLOPRAMIDE HCL 10 MG/2 ML VIAL IVP SCH ×3 (05:44→17:10)
[2022-11-15 06:10] LABS: BASOPHILS # (AUTO) 0.1 K/uL (0.0-0.2); BASOPHILS % (AUTO) 0.8 % (0.0-2.0); EOSINOPHILS # (AUTO) 0.6 K/uL (0.0-0.4); EOSINOPHILS % (AUTO) 5.4 % (0.0-4.0); HEMATOCRIT 32.9 % (36-54); HEMOGLOBIN 10.8 g/dL (14.0-18.0); LYMPHOCYTES # (AUTO) 1.7 K/uL (1.0-5.5); LYMPHOCYTES % (AUTO) 16.5 % (20.5-51.5); MEAN CORPUSCULAR HEMOGLOBIN 29 pg (27-31); MEAN CORPUSCULAR HGB CONC 33 % (32-36); MEAN CORPUSCULAR VOLUME 88 fL (79.0-98.0); MONOCYTES # (AUTO) 1.5 K/uL (0.0-1.0); NEUTROPHILS # (AUTO) 6.4 K/uL (1.8-7.7); NEUTROPHILS % (AUTO) 62.3 % (40.0-70.0); PLATELET COUNT (AUTO) 353 K/uL (130-430); RED BLOOD CELL COUNT(AUTO) 3.76 MIL/uL (4.2-6.2); RED CELL DISTRIBUTION WIDTH 14.3 % (9.0-15.0); WHITE BLOOD COUNT (AUTO) 10.2 K/uL (4.8-10.8)
--- NOTE | 2022-11-15 06:18 | NUR ---
CLOSING NOTE PATIENT IN BED, NO S/S OF ACUTE DISTRESS. BREATHING EVEN AND UNLABORED. HOB RAISED. IVF INFUSING WELL. IV SITE PATENT, NO SIGNS OF INFILTRATION OR INFECTION NOTED. ALL NEEDS MET THROUGHOUT SHIFT. FALL , SAFETY PRECAUTIONS MAINTAINED THROUGHOUT SHIFT. WILL CONTINUE TO MONITOR UNTIL PATIENT CARE IS ENDORSED TO ONCOMING DAYSHIFT NURSE.
[2022-11-15 06:20] LABS: ERYTHROCYTE SEDIMENTATION RATE 76 MM/HR (0-15)
[2022-11-15 06:29] LABS: ALBUMIN 2.2 g/dL (3.4-4.8); CALCIUM 8.2 mg/dL (8.4-11.0); CREATININE 0.87 mg/dL (0.55-1.30); TOTAL BILIRUBIN 0.6 mg/dL (0.0-1.0)
[2022-11-15 08:05] VITALS: BP_SYST 151; PULSE 92; RESP 16; TEMP 98.1; O2SAT 96
[2022-11-15] MEDS: FAMOTIDINE PF 20 MG/2 ML VIAL IVP SCH ×2 (08:45→21:48)
[2022-11-15] MEDS: SIMETHICONE 80 MG TAB.CHEW PO SCH ×3 (08:45→21:48)
[2022-11-15] MEDS: MINERAL OIL 30 ML UDC PO SCH (08:45)
[2022-11-15 12:38] VITALS: BP_SYST 153; PULSE 89; RESP 16; TEMP 97.8; O2SAT 94
[2022-11-15] MEDS: D5/0.45 NS 1,000 ML IV SCH (12:47)
--- NOTE | 2022-11-15 13:07 | NUR ---
Dr. Hayden was at bedside. Sx dressing removed and roberta intact. Foam dressing applied with abd binder. LAINE drain dressing also removed and clear tegaderm placed. Site WNL with suture. He stated the LAINE drain will be removed once the output is less than 30ml/day. He also stated pt have the clear liquids but to still keep it light. Pt currently having lunch.
--- NOTE | 2022-11-15 14:37 | NUR ---
PHYSICAL THERAPY CO-SIGN The Physical Therapy Progress Notes documented by Store Hand have been reviewed. Reviewed/Co-Signed by: Fernando Mai Documentation Done by:MARIAA ROWAN Addendum: 11/15/22 at 1437 by Fernando Mai PT Amended: Links added.
[2022-11-15 15:51] VITALS: BP_SYST 159; PULSE 92; RESP 18; TEMP 98.1; O2SAT 96
--- NOTE | 2022-11-15 17:00 | NUR ---
Pt ambulated in hallway with post pain management tx with dilaudid. Tolerated well
[2022-11-15] MEDS: FLUCONAZOLE 200 mg/ NS 100 ML IV SCH (17:11)
[2022-11-15 18:56] VITALS: BP_SYST 149; PULSE 98; RESP 18; O2SAT 98
--- NOTE | 2022-11-15 19:15 | NUR ---
OPENING NOTE REPORT RECEIVED. PATIENT IN BED, AWAKE, NO S/S OF ACUTE DISTRESS. BREATHING EVEN AND UNLABORED. HOB RAISED. IVF INFUSING WELL. SKIN WARM AND DRY TO TOUCH. CALL LIGHT WITH PATIENT. BED IS LOCKED AND AT LOWEST POSITION. WILL CONTINUE TO MONITOR.
[2022-11-15 20:00] VITALS: BP_SYST 157; PULSE 95; RESP 18; TEMP 97.3; O2SAT 97
[2022-11-15] MEDS ORDERED: TPN CENTRAL IV SCH ×9 (21:00)
[2022-11-15] MEDS ORDERED: NA PHOS IV SCH ×9 (21:00)
[2022-11-15] MEDS ORDERED: [UNRECOGNIZED DRUG - OTHER] IV SCH ×9 (21:00)
[2022-11-15] MEDS ORDERED: SODIUM CHLORIDE IV SCH ×9 (21:00)
[2022-11-15] MEDS: FAT EMULSIONS 250 ML IV SCH (21:49)
--- NOTE | 2022-11-15 23:00 | NUR ---
ROUNDS PATIENT IN BED, RESTING. NO SIGNS OF DISCOMFORT. ALL NEEDS MET. WILL MONITOR.
[2022-11-16] VITALS: BP_SYST 134; PULSE 96; RESP 16; TEMP 98.6; O2SAT 95
[2022-11-16] MEDS: METOCLOPRAMIDE HCL 10 MG/2 ML VIAL IVP SCH ×5 (00:46→23:39)
[2022-11-16] MEDS: HYDROmorphone 1 MG/ML INJ. CARTRIDGE IVP PRN ×10 (00:47→21:53)
--- NOTE | 2022-11-16 03:00 | NUR ---
ROUNDS NO CHANGE IN CONDITION. ALL NEEDS MET. WILL MONITOR.
[2022-11-16 05:33] LABS: ERYTHROCYTE SEDIMENTATION RATE 51 MM/HR (0-15)
[2022-11-16 05:39] LABS: BASOPHILS # (AUTO) 0.1 K/uL (0.0-0.2); BASOPHILS % (AUTO) 1.2 % (0.0-2.0); EOSINOPHILS # (AUTO) 0.5 K/uL (0.0-0.4); EOSINOPHILS % (AUTO) 5.1 % (0.0-4.0); HEMATOCRIT 30.4 % (36-54); HEMOGLOBIN 10.2 g/dL (14.0-18.0); LYMPHOCYTES # (AUTO) 1.5 K/uL (1.0-5.5); MEAN CORPUSCULAR HEMOGLOBIN 29 pg (27-31); MEAN CORPUSCULAR HGB CONC 33 % (32-36); MEAN CORPUSCULAR VOLUME 87 fL (79.0-98.0); MONOCYTES # (AUTO) 1.3 K/uL (0.0-1.0); MONOCYTES % (AUTO) 14.5 % (1.7-9.3); NEUTROPHILS # (AUTO) 5.8 K/uL (1.8-7.7); NEUTROPHILS % (AUTO) 63.2 % (40.0-70.0); PLATELET COUNT (AUTO) 305 K/uL (130-430); RED BLOOD CELL COUNT(AUTO) 3.49 MIL/uL (4.2-6.2); RED CELL DISTRIBUTION WIDTH 14.1 % (9.0-15.0); WHITE BLOOD COUNT (AUTO) 9.1 K/uL (4.8-10.8)
[2022-11-16 05:56] LABS: ALBUMIN 2.1 g/dL (3.4-4.8); CALCIUM 8.2 mg/dL (8.4-11.0); CREATININE 0.85 mg/dL (0.55-1.30); PHOSPHORUS 3.4 mg/dL (2.7-4.5); TOTAL BILIRUBIN 0.7 mg/dL (0.0-1.0)
--- NOTE | 2022-11-16 06:29 | NUR ---
CLOSING NOTE PATIENT IN BED. NO S/S OF ACUTE DISTRESS. BREATHING EVEN AND UNLABORED. ALL NEEDS MET. FALL, SAFETY PRECAUTIONS MAINTAINED THROUGHOUT SHIFT. WILL CONTINUE TO MONITOR UNTIL PATIENT CARE IS ENDORSED TO ONCOMING DAYSHIFT NURSE.
[2022-11-16 08:00] VITALS: BP_SYST 166; PULSE 92; RESP 18; TEMP 98.7; O2SAT 96
[2022-11-16] MEDS: MINERAL OIL 30 ML UDC PO SCH (08:57)
[2022-11-16] MEDS: FAMOTIDINE PF 20 MG/2 ML VIAL IVP SCH ×2 (08:57→21:54)
[2022-11-16] MEDS: SIMETHICONE 80 MG TAB.CHEW PO SCH ×3 (08:57→21:54)
--- NOTE | 2022-11-16 11:06 | NUR ---
Nutrition Note RD attended LOS meeting this morning. Per fina, Dr. Hayden wants to advance diet as tolerated, add protein shake, and taper off TPN support. RD entered GI Soft (low-fiber/bland) diet w/ Ensure TID via TO/RB for lunch today and notified pharmDs about upcoming D/C of TPN order today. Periop Supervisor [employer] stated she would notify pt's primary RN regarding order to D/C TPN today.
--- NOTE | 2022-11-16 13:44 | NUR ---
PHYSICAL THERAPY CO-SIGN The Physical Therapy Progress Notes documented by Comic Illustrator have been reviewed. Reviewed/Co-Signed by: Fernando Mai Documentation Done by:MARIAA ROWAN Addendum: 11/16/22 at 1344 by Fernando Mai PT Amended: Links added.
--- NOTE | 2022-11-16 15:29 | NUR ---
[facility] F/U RD reviewed pts current EMR including diet hx, physician notes, nursing notes, pertinent labs/meds/procedures, care trends and care activity. Admitting Diagnosis Diverticulitis 11/16 Cardiology Progress Notes -- Assessment ASSESSMENT: * Microperforation of sigmoid colon with surrounding abscess formation, * There is no evidence for active angina or congestive heart failure. *Status post exploratory laparotomy and bowel resection with drainage of abscess. Plan Progressive improvement noted. Continue antibiotics. TPN could be tapered off as his diet is being advanced by surgery. Subjective Information RD met w/ pt and at bedside. Pt reported tolerance of 1/4 of fish and rice for lunch today alongside bone broth provided by from home. He is interested in mashed potatoes and chicken for dinner, and would like to avoid added sugars, breads, gelatin, and crackers. He prefers to only have sugar in the form of fruit or apple juice. RD verbally educated pt and on GI soft diet, keeping in mind to limit fiber intakes, then gradually introduce higher fiber foods within the next month or so as the gut heals after Sx. Pt attested to BM x2 (small) today. RD notified dietary aide cook of pt's food preferences, and stated pt would appreciate menu preferences moving forward to better meet nutritional needs. Current Diet Order/Nutrition Support Soft (low-fiber/bland) diet x0 days & TPN D30%, AA8.5% at 90 ml/hr, IL20% at 5 ml/hr via central line % PO intake 25% of lunch per RD witness Last BM x2 11/16 per pt report Estimated Energy Expenditure (kcals/day) 7173-5970 (30-35 kcal/kg CBW d/t GERIAT maintenance, Sx healing) Estimated Protein Required (g/day) 114-143 (1-1.2 gm/kg CBW d/t GERIAT maintenance, Sx healing) Estimated Fluid Required (l/day) 2.8-3.3 (1 ml/kcal/day for GERIAT maintenance) Problem/Etiology/Signs/Symptoms Complicated GI function R/T pathophysiological factors AEB NPO status and Dx of perforated diverticulitis. *Improving w/ advancement of PO diet Expected Outcomes/Goals - Monitor provision of alternative nutrition support w/ goal of pt meeting 50% of estimated nutritional needs, labs trending WNL, normal GI function, and skin integrity/wt maintenance Dietitian Recommendations * GI Soft (low-fiber/bland) diet w/ Ensure TID (ONS yields additional 1230 kcal/day, 60 gm protein/day) * Encourage good PO intakes * Taper off TPN support Follow up * High Risk: RD to F/U in 2-3 days
--- NOTE | 2022-11-16 15:35 | NUR ---
Dietitian Recommendations * GI Soft (low-fiber/bland) diet w/ Ensure TID (ONS yields additional 1230 kcal/day, 60 gm protein/day) * Encourage good PO intakes * Taper off TPN support LP, MS, RD Please refer to Nutrition F/U for details.
[2022-11-16 15:55] VITALS: BP_SYST 158; PULSE 111; RESP 18; TEMP 98.7; O2SAT 97
[2022-11-16] MEDS: D5/0.45 NS 1,000 ML IV SCH (16:06)
--- NOTE | 2022-11-16 19:15 | NUR ---
OPENING NOTE REPORT RECEIVED LYING IN BED, NO S/S OF ACUTE DISTRESS. PATIENT'S AT BEDSIDE. BREATHING EVEN AND UNLABORED. IVF INFUSING WELL. IV SITE PATENT, NO SIGNS OF INFILTRATION OR INFECTION NOTED. CALL LIGHT WITH PATIENT BED ALARM ON. BED IS LOCKED AND AT LOWEST POSITION. WILL CONTINUE TO MONITOR.
[2022-11-16 20:00] VITALS: BP_SYST 147; PULSE 118; RESP 18; TEMP 98.8; O2SAT 95
--- NOTE | 2022-11-16 20:46 | NUR ---
PATIENT IMPROVING STARTED ON DIET TODAY AND DISCONTINUING TPN LIPID ONCE COMPLETELY INFUSED PAIENT TAKING IT SLOW WITH NUTRITION. CONTINUES TO REQUIRE PAIN MEDICATION Q 3 HOURS.
[2022-11-16] MEDS ORDERED: TPN CENTRAL IV SCH ×9 (21:00)
[2022-11-16] MEDS ORDERED: [UNRECOGNIZED DRUG - OTHER] IV SCH ×9 (21:00)
[2022-11-16] MEDS ORDERED: NA PHOS IV SCH ×9 (21:00)
[2022-11-16] MEDS ORDERED: SODIUM CHLORIDE IV SCH ×9 (21:00)
--- NOTE | 2022-11-16 23:00 | NUR ---
ROUNDS PATIENT IN BED, NO SIGNS OF DISCOMFORT. ALL NEEDS MET. AT THIS TIME. WILL MONITOR.
[2022-11-17] VITALS (8 sets, daily range): BP systolic 127–151; PULSE 80–167; RESP 18–20; TEMP 97.5–99.9; O2SAT 9–96
[2022-11-17] MEDS: HYDROmorphone 1 MG/ML INJ. CARTRIDGE IVP PRN ×5 (00:58→13:13)
--- NOTE | 2022-11-17 03:00 | NUR ---
ROUNDS PATIENT IN BED, NO CHANGE IN CONDITION. ALL NEEDS MET. WILL MONITOR.
[2022-11-17] MEDS ORDERED: FLUC200T PO (04:17)
[2022-11-17] MEDS ORDERED: FAMO-132 PO (04:17)
[2022-11-17] MEDS ORDERED: METO-290 PO (04:17)
[2022-11-17] MEDS ORDERED: PERC10 PO (04:17)
[2022-11-17] MEDS ORDERED: HYDR-3927 PO (04:17)
[2022-11-17] MEDS ORDERED: SIME80TA15 PO (04:17)
[2022-11-17] MEDS ORDERED: LEVO-62 PO (04:21)
--- NOTE | 2022-11-17 06:27 | NUR ---
CLOSING NOTE PATIENT IN BED, RESTING. NO S/S OF ACUTE DISTRESS. BREATHING EVEN AND UNLABORED. IVF INFUSING WELL. IV SITE PATENT, NO SIGNS OF INFILTRATION OR INFECTION NOTED. ALL NEEDS MET THROUGHOUT SHIFT. FALL, SAFETY PRECAUTIONS MAINTAINED THROUGHOUT SHIFT. WILL CONTINUE TO MONITOR UNTIL PATIENT CARE IS ENDORSED TO ONCOMING DAYSHIFT NURSE.
[2022-11-17] MEDS: METOCLOPRAMIDE HCL 10 MG/2 ML VIAL IVP SCH ×3 (06:50→18:40)
[2022-11-17 07:07] LABS: BASOPHILS # (AUTO) 0.1 K/uL (0.0-0.2); BASOPHILS % (AUTO) 0.8 % (0.0-2.0); EOSINOPHILS # (AUTO) 0.1 K/uL (0.0-0.4); EOSINOPHILS % (AUTO) 0.4 % (0.0-4.0); HEMATOCRIT 33.3 % (36-54); HEMOGLOBIN 10.9 g/dL (14.0-18.0); LYMPHOCYTES # (AUTO) 1.1 K/uL (1.0-5.5); MEAN CORPUSCULAR HEMOGLOBIN 29 pg (27-31); MEAN CORPUSCULAR HGB CONC 33 % (32-36); MEAN CORPUSCULAR VOLUME 87 fL (79.0-98.0); MONOCYTES # (AUTO) 1.3 K/uL (0.0-1.0); MONOCYTES % (AUTO) 10.1 % (1.7-9.3); NEUTROPHILS # (AUTO) 10.1 K/uL (1.8-7.7); NEUTROPHILS % (AUTO) 79.7 % (40.0-70.0); PLATELET COUNT (AUTO) 269 K/uL (130-430); RED BLOOD CELL COUNT(AUTO) 3.83 MIL/uL (4.2-6.2); RED CELL DISTRIBUTION WIDTH 14.1 % (9.0-15.0); WHITE BLOOD COUNT (AUTO) 12.6 K/uL (4.8-10.8)
[2022-11-17] MEDS: MINERAL OIL 30 ML UDC PO SCH (09:49)
[2022-11-17] MEDS: FAMOTIDINE PF 20 MG/2 ML VIAL IVP SCH ×2 (09:50→21:55)
[2022-11-17] MEDS: SIMETHICONE 80 MG TAB.CHEW PO SCH ×3 (09:50→21:56)
[2022-11-17] MEDS: INSULIN REGULAR, HUMAN 100 UNITS/ML, 3 ML VIAL (humuLIN R) SUBCUT PRN (12:18)
[2022-11-17] MEDS: D5/0.45 NS 1,000 ML IV SCH (12:26)
[2022-11-17] MEDS ORDERED: ADENOSINE 6MG/2ML VIAL IVP ONE (14:15)
[2022-11-17] MEDS ORDERED: AMIODARONE HCL 200 MG TABLET PO ONE (14:30)
[2022-11-17] MEDS ORDERED: METOPROLOL TARTRATE 5 MG/5 ML VIAL IVP ONE (16:45)
[2022-11-17] MEDS ORDERED: METOPROLOL TARTRATE 5 MG/5 ML VIAL ONE (16:49)
[2022-11-17] MEDS: AMIODARONE HCL 200 MG TABLET PO SCH (21:56)
[2022-11-18] VITALS (8 sets, daily range): BP systolic 123–135; PULSE 77–90; RESP 15–20; TEMP 97–97.5; O2SAT 95–99
[2022-11-18] MEDS: METOCLOPRAMIDE HCL 10 MG/2 ML VIAL IVP SCH ×5 (01:12→23:07)
[2022-11-18] MEDS: AMIODARONE HCL 200 MG TABLET PO SCH ×3 (06:43→21:02)
[2022-11-18 07:14] LABS: BASOPHILS # (AUTO) 0.1 K/uL (0.0-0.2); BASOPHILS % (AUTO) 0.7 % (0.0-2.0); EOSINOPHILS % (AUTO) 0.3 % (0.0-4.0); HEMOGLOBIN 10.6 g/dL (14.0-18.0); LYMPHOCYTES # (AUTO) 1.3 K/uL (1.0-5.5); LYMPHOCYTES % (AUTO) 12.2 % (20.5-51.5); MEAN CORPUSCULAR HEMOGLOBIN 29 pg (27-31); MEAN CORPUSCULAR HGB CONC 33 % (32-36); MEAN CORPUSCULAR VOLUME 86 fL (79.0-98.0); MONOCYTES # (AUTO) 1.5 K/uL (0.0-1.0); MONOCYTES % (AUTO) 14.3 % (1.7-9.3); NEUTROPHILS # (AUTO) 7.9 K/uL (1.8-7.7); NEUTROPHILS % (AUTO) 72.5 % (40.0-70.0); PLATELET COUNT (AUTO) 247 K/uL (130-430); RED BLOOD CELL COUNT(AUTO) 3.72 MIL/uL (4.2-6.2); RED CELL DISTRIBUTION WIDTH 14.3 % (9.0-15.0); WHITE BLOOD COUNT (AUTO) 10.8 K/uL (4.8-10.8)
[2022-11-18 07:23] LABS: CALCIUM 8.5 mg/dL (8.4-11.0); CREATININE 1.01 mg/dL (0.55-1.30)
[2022-11-18 07:44] LABS: ERYTHROCYTE SEDIMENTATION RATE 77 MM/HR (0-15)
[2022-11-18] MEDS: MINERAL OIL 30 ML UDC PO SCH (08:57)
[2022-11-18] MEDS: SIMETHICONE 80 MG TAB.CHEW PO SCH ×3 (08:57→21:00)
[2022-11-18] MEDS: FAMOTIDINE PF 20 MG/2 ML VIAL IVP SCH ×2 (08:58→21:00)
[2022-11-18] MEDS ORDERED: HYDROmorphone 2 MG/ML VIAL ONE (16:29)
[2022-11-18] MEDS ORDERED: HYDROmorphone 1 MG/ML INJ. CARTRIDGE IVP ONE (16:30)
--- NOTE | 2022-11-18 17:11 | NUR ---
Surgeon ordered dilaudid once for krishna drain removal ,drain removed with good results.
[2022-11-18] MEDS: D5/0.45 NS 1,000 ML IV SCH (17:26)
--- NOTE | 2022-11-18 18:06 | NUR ---
No complaints ,tolerating diet and activity, ,v/s stable,roberta and LAINE removed by surgeon ,tolerated procedure,continue with plan of care.
--- NOTE | 2022-11-18 19:15 | NUR ---
pt.presents quiescent affect;calm,resting.pt.stated he is ambulating is presenting bm's.;surgeon presented today assessed pt.,removed the j-bridges,addressed the incisions.pt.presents iv access;mid-line location lt.bicept lntact;patent iv fluids infusing.general status stable,respiratory status stable unlabored@room air.pt.ambulating to the restroom unassisted.call light/ telephone w/in access of the pt.
--- NOTE | 2022-11-18 20:00 | NUR ---
pt.assessed.v/s assessed values wnl.no c/o pain,nausea.mid-line intact;patent.iv fluids infusing.o2-sat%=96%. pt.capable to reposition self.diet stsus soft;bland.pt.apprised snacks/beverages are available w/in the shift.pt. stated he has been consuming regular food:food items from family:outside the hospital.pt.has been tolerating the regular food items.call light/telephone w/in access of the pt.
--- NOTE | 2022-11-18 21:00 | NUR ---
2100p medications:pt.refused administration including amiodarone:2200p dose.h/r other v/s values wnl.call light/telephone w/in access of the pt.
--- NOTE | 2022-11-18 21:18 | NUR ---
Paged Dr. Coffey Joseph
[2022-11-18] MEDS ORDERED: traZODone HCL 50 MG TABLET (DESYREL) PO PRN (21:45)
--- NOTE | 2022-11-18 22:00 | NUR ---
;a paged;returned the page. apprised pt's requests medication;sleep. ordered trazadone;50mg po sleep q-hs/prn. i apprised that tpn was no longer active;administered. pt.presents no diabetic hx blood glucose order is active. ordered d/c blood glucose assessment. pt.apprised of the orders.no c/o pain,nausea.no requests posited@this hour.pt.capable to reposition self.call light/telephone w/in access of the pt.
--- NOTE | 2022-11-18 23:30 | NUR ---
reglan:5mg ivp midnight dose,trazadone:50mg po administered@this hour.no additional requests posited@this hour. pt.capable to reposition self.call light/telephone w/in access of the pt.
[2022-11-19] VITALS (7 sets, daily range): BP systolic 120–155; PULSE 77–85; RESP 16–20; TEMP 97.6–98.9; O2SAT 95–98
--- NOTE | 2022-11-19 | NUR ---
pt.assessed.v/s assessed values wnl.no c/o pain,nausea.no requests posited@this hour.pt.capable to reposition self. call light/telephone w/in access of the pt.
--- NOTE | 2022-11-19 02:00 | NUR ---
pt.assessed.pt.quiescent.per flacc pain mgx pt.absent facial grimaces/body posturing.pt.absent respiratory distress. pt.capable to reposition self.call light/telephone w/in access of the pt.
--- NOTE | 2022-11-19 04:00 | NUR ---
pt.assessed.pt.quiescent;somnolent.per flacc pqin mgx pt.absent facial grimaces/body posturing.pt.absent respiratory distress.pt.capabe to reposition self.call light/telephone w/in access of the pt.
[2022-11-19 05:44] LABS: ERYTHROCYTE SEDIMENTATION RATE 67 MM/HR (0-15)
[2022-11-19 05:47] LABS: BASOPHILS # (AUTO) 0.1 K/uL (0.0-0.2); BASOPHILS % (AUTO) 0.7 % (0.0-2.0); EOSINOPHILS # (AUTO) 0.3 K/uL (0.0-0.4); EOSINOPHILS % (AUTO) 3.2 % (0.0-4.0); HEMATOCRIT 31.2 % (36-54); HEMOGLOBIN 10.4 g/dL (14.0-18.0); LYMPHOCYTES # (AUTO) 1.7 K/uL (1.0-5.5); LYMPHOCYTES % (AUTO) 20.1 % (20.5-51.5); MEAN CORPUSCULAR HEMOGLOBIN 29 pg (27-31); MEAN CORPUSCULAR HGB CONC 33 % (32-36); MEAN CORPUSCULAR VOLUME 86 fL (79.0-98.0); MONOCYTES # (AUTO) 1.2 K/uL (0.0-1.0); NEUTROPHILS # (AUTO) 5.2 K/uL (1.8-7.7); PLATELET COUNT (AUTO) 245 K/uL (130-430); RED BLOOD CELL COUNT(AUTO) 3.64 MIL/uL (4.2-6.2); RED CELL DISTRIBUTION WIDTH 14.5 % (9.0-15.0); WHITE BLOOD COUNT (AUTO) 8.5 K/uL (4.8-10.8)
[2022-11-19] MEDS: AMIODARONE HCL 200 MG TABLET PO SCH ×3 (06:00→21:51)
--- NOTE | 2022-11-19 06:00 | NUR ---
pt.assessed.no c/o pain,nausea.no requests posited@this hour.pt.refused amiodarone 0600a dose.v/s assessed p/t due time. note h/r status wnl.pt.capable to reposition self/ambulate to the restroom un-assisted/upon unit.call light/telephone w/in access of the pt.
[2022-11-19 06:10] LABS: CALCIUM 8.2 mg/dL (8.4-11.0); CREATININE 0.93 mg/dL (0.55-1.30); TOTAL BILIRUBIN 0.5 mg/dL (0.0-1.0)
[2022-11-19] MEDS: D5/0.45 NS 1,000 ML IV SCH (06:30)
[2022-11-19] MEDS: METOCLOPRAMIDE HCL 10 MG/2 ML VIAL IVP SCH (06:30)
--- NOTE | 2022-11-19 08:54 | NUR ---
SENT PACKET OVER TO [facility] FAX# [phone] DL#[phone] FOR MR LANDRY.
[2022-11-19] MEDS: MINERAL OIL 30 ML UDC PO SCH (09:00)
[2022-11-19] MEDS ORDERED: FAMOTIDINE 20 MG TABLET PO SCH (09:00)
[2022-11-19] MEDS: SIMETHICONE 80 MG TAB.CHEW PO SCH ×4 (09:00→21:51)
--- NOTE | 2022-11-19 09:43 | NUR ---
Patient refused by Rajan Mehta-patient does not meet criteria for Acute Rehab level of care per Juliana at [facility]
[2022-11-19] MEDS: APIXABAN 2.5 MG TABLET PO SCH ×2 (09:58→21:52)
[2022-11-19] MEDS ORDERED: FLUCONAZOLE 200 MG TABLET (DIFLUCAN) PO ONE (11:15)
--- NOTE | 2022-11-19 15:16 | NUR ---
PHYSICAL THERAPY CO-SIGN The Physical Therapy Progress Notes documented by [employer] have been reviewed. Reviewed/Co-Signed by: Fernando Mai Documentation Done by:MARIAA ROWAN Addendum: 11/19/22 at 1516 by Fernando Mai PT Amended: Links added.
--- NOTE | 2022-11-19 18:57 | NUR ---
Medicated twice for complaints of nausea and pain with good results,number 22 iv restarted in left forearm,tolerated well,tolerating po's poorly,continue with plan of care. Addendum: 11/19/22 at 1900 by [employer] Pro RN wrong patient
--- NOTE | 2022-11-19 19:00 | NUR ---
No complaints this shift,tolerating diet and activity well,continue with plan of care.
--- NOTE | 2022-11-19 23:30 | NUR ---
OPENING NOTES: Patient received during 1900 change of shift. Patient is AA&Ox4 able to make needs known, with family at bedside & call light within reach at this time. Patient denied any pain or distress at this time, chest rise noted even & unlabored on RA on tele monitoring with SR on the monitor. Safety measures are in place as per protocol and Patient noted stable at this time. Care was resumed at this time 0: Patient has been assessed as indicated & has received scheduled evening medications as ordered. Patient continues to deny any pain or distress is orientated & able to use call light as needed. Patient is independent with personal care and requires minimal assistance from staff. Assistance with evening care was provided by nurses aid. Patient is noted sleeping at this time no s/s of distress, will continue to monitor.
[2022-11-20 00:15] VITALS: BP_SYST 125; PULSE 78; RESP 18; TEMP 98.5; O2SAT 96
--- NOTE | 2022-11-20 00:35 | NUR ---
Dietitian Recommendations * Continue GI Soft (low-fiber/bland) diet * Discontinue Ensure TID per patient request (patient likely meeting nutrient needs) * Encourage good PO intakes Monitor PO intakes, GI, skin, and labs Please refer to RD assessment 11/20/2022 for details. RODOLFO, AMARILISN
--- NOTE | 2022-11-20 00:37 | NUR ---
Nutrition F/U RD reviewed pts current EMR including diet hx, physician notes, nursing notes, pertinent labs/meds/procedures, care trends and care activity. Admitting Diagnosis Diverticulitis 11/16 Cardiology Progress Notes -- ASSESSMENT: * Microperforation of sigmoid colon with surrounding abscess formation, * There is no evidence for active angina or congestive heart failure. *Status post exploratory laparotomy and bowel resection with drainage of abscess. 11/19: Patient awake, alert, on room air, on IV Abx an d P.O pain medication. TPN d/c. Subjective Information RD met w/ pt and at bedside. Pt reported he has been receiving food from home 1-2x/day and has been eating things such as grilled chicken, beef jerky, protein smoothies and crema of wheat; patient likely meeting nutrient needs despite not eating 100% of meals provided by hospital. Patient stated he does not drink Ensure as his brings him a superior protein shake daily. Patient and family have been previously educated on GI soft diet, keeping in mind to limit fiber intakes, then gradually introduce higher fiber foods within the next month or so as the gut heals after Sx. Pt attested to BM today, reported has not had a solid BM since surgery r/t mineral oil given. Pertinent Medications: Pepcid, Zofran, Reglan Current Diet Order/Nutrition Support Soft (low-fiber/bland) diet x4 days % PO intake 50-100% of meals per EMR *improved Estimated Energy Expenditure (kcals/day) 5033-0320 (30-35 kcal/kg CBW d/t GERIAT maintenance, Sx healing) Estimated Protein Required (g/day) 114-143 (1-1.2 gm/kg CBW d/t GERIAT maintenance, Sx healing) Estimated Fluid Required (l/day) 2.8-3.3 (1 ml/kcal/day for GERIAT maintenance) Problem/Etiology/Signs/Symptoms Complicated GI function R/T pathophysiological factors AEB NPO status and Dx of perforated diverticulitis. *Improving w/ advancement of PO diet Expected Outcomes/Goals - Monitor provision of alternative nutrition support w/ goal of pt meeting 50% of estimated nutritional needs, labs trending WNL, normal GI function, and skin integrity/wt maintenance Dietitian Recommendations * Continue GI Soft (low-fiber/bland) diet * Discontinue Ensure TID per patient request (patient likely meeting nutrient needs) * Encourage good PO intakes Follow up * Moderate Risk: RD to F/U in 3-5 days
[2022-11-20 05:15] LABS: BASOPHILS # (AUTO) 0.2 K/uL (0.0-0.2); BASOPHILS % (AUTO) 2.3 % (0.0-2.0); EOSINOPHILS # (AUTO) 0.4 K/uL (0.0-0.4); EOSINOPHILS % (AUTO) 4.4 % (0.0-4.0); HEMATOCRIT 31.7 % (36-54); HEMOGLOBIN 10.4 g/dL (14.0-18.0); LYMPHOCYTES # (AUTO) 1.8 K/uL (1.0-5.5); LYMPHOCYTES % (AUTO) 20.6 % (20.5-51.5); MEAN CORPUSCULAR HEMOGLOBIN 29 pg (27-31); MEAN CORPUSCULAR HGB CONC 33 % (32-36); MEAN CORPUSCULAR VOLUME 86 fL (79.0-98.0); MONOCYTES # (AUTO) 1.1 K/uL (0.0-1.0); MONOCYTES % (AUTO) 12.7 % (1.7-9.3); NEUTROPHILS # (AUTO) 5.2 K/uL (1.8-7.7); PLATELET COUNT (AUTO) 273 K/uL (130-430); RED BLOOD CELL COUNT(AUTO) 3.67 MIL/uL (4.2-6.2); RED CELL DISTRIBUTION WIDTH 14.3 % (9.0-15.0); WHITE BLOOD COUNT (AUTO) 8.7 K/uL (4.8-10.8)
[2022-11-20 05:22] LABS: CALCIUM 8.2 mg/dL (8.4-11.0); CREATININE 1.03 mg/dL (0.55-1.30)
[2022-11-20 05:33] LABS: ERYTHROCYTE SEDIMENTATION RATE 79 MM/HR (0-15)
--- NOTE | 2022-11-20 06:26 | NUR ---
CLOSING NOTES: Patient is in bed resting no s/s of distress is noted at this time. Chest rise even, unlabored on RA on Tele monitoring with NSR. Patient AA&Ox4 able to make needs known with call light within reach. Patient is stable at this time, all current shift needs have been met and safety measures remain in place as per protocol. Will differ care to AM shift nurse for continuity of care.
[2022-11-20 08:00] VITALS: O2SAT 96
[2022-11-20] MEDS ORDERED: FLUCONAZOLE 200 MG TABLET (DIFLUCAN) PO SCH (09:00)
[2022-11-20 09:10] VITALS: BP_SYST 117; PULSE 72; RESP 18; TEMP 97.6
[2022-11-20] MEDS: AMIODARONE HCL 200 MG TABLET PO SCH (09:23)
[2022-11-20] MEDS: APIXABAN 2.5 MG TABLET PO SCH (09:25)
[2022-11-20 11:15] VITALS: BP_SYST 117; PULSE 72; RESP 18; TEMP 97; O2SAT 99
[2022-11-20 11:40] VITALS: BP_SYST 127; PULSE 77; RESP 18; TEMP 97.8; O2SAT 97
[2022-11-20] MEDS ORDERED: AMIO200T61 PO (12:27)
[2022-11-20] MEDS ORDERED: APIX2.5T PO (12:27)
--- NOTE | 2022-11-20 12:30 | NUR ---
CM: met with pt and his Elen, discussed dc to home with SIOBHAN. Per , the pt will be living with his cousin in [place] at address [address], [place] [id number], contact Elen # [phone]. The pt already has fww and cane at home. Elen aware the home health visiting call will take up to 48 hours. Addendum: 11/20/22 at 1423 by Nicole Dixon RN faxed homehealth referral to [facility] fax # [phone], tel # [phone].
--- NOTE | 2022-11-20 13:42 | NUR ---
D/C Patient Patient given medication reconciliation form and D/C instructions. Exit Care provided. Patient verbalized understanding. MD discussed with patient the results and treatment provided. Ambulatory with steady gait for discharge to home. Patient in stable condition, ID band removed. IV catheter removed, intact and dressing applied, no active bleeding. Rx of given. Patient educated on pain management. All belongings sent with patient.
[2022-11-20 14:14] VITALS: BP_SYST 126; PULSE 89; RESP 16; TEMP 97.6
== END 2022-11-20 13:50 | disposition home health service (06) | DRG 853 ==
LOC: SED 06:02 → SMU 08:18 → SIC 11-08 09:16 → STU 11-11 14:00 → SMU 11-14 23:37 → STU 11-17 20:16
PROVIDERS: ADMIT Preventive Medicine Preventive Medicine/Occupational Environmental Medicine; ATTEND Preventive Medicine Preventive Medicine/Occupational Environmental Medicine
PROC: 0DTP4ZZ Resection of Rectum, Percutaneous Endoscopic Approach (ICD-10-PCS; 2022-11-08)
PROC: 3E1M38Z Irrigation of Peritoneal Cavity using Irrigating Substance, Percutaneous Approach (ICD-10-PCS; 2022-11-08)
PROC: 0DN84ZZ Release Small Intestine, Percutaneous Endoscopic Approach (ICD-10-PCS; 2022-11-08)
PROC: 0W9J40Z Drainage of Pelvic Cavity with Drainage Device, Percutaneous Endoscopic Approach (ICD-10-PCS; 2022-11-08)
PROC: 0DJD8ZZ Inspection of Lower Intestinal Tract, Via Natural or Artificial Opening Endoscopic (ICD-10-PCS; principal; 2022-11-08 07:30)
DX: A41.9 Sepsis, unspecified organism (principal); E43 Unspecified severe protein-calorie malnutrition; J96.00 Acute respiratory failure, unspecified whether with hypoxia or hypercapnia; K65.1 Peritoneal abscess; K65.9 Peritonitis, unspecified; K57.20 Diverticulitis of large intestine with perforation and abscess without bleeding; E87.1 Hypo-osmolality and hyponatremia; K56.609 Unspecified intestinal obstruction, unspecified as to partial versus complete obstruction; K56.7 Ileus, unspecified; K91.89 Other postprocedural complications and disorders of digestive system; N17.9 Acute kidney failure, unspecified; I48.92 Unspecified atrial flutter; R73.9 Hyperglycemia, unspecified; Z68.29 Body mass index [BMI] 29.0-29.9, adult; D64.9 Anemia, unspecified; D75.839 Thrombocytosis, unspecified; E83.39 Other disorders of phosphorus metabolism; E83.51 Hypocalcemia; E83.52 Hypercalcemia; E87.6 Hypokalemia; M19.90 Unspecified osteoarthritis, unspecified site; R74.01 Elevation of levels of liver transaminase levels; E88.09 Other disorders of plasma-protein metabolism, not elsewhere classified; Z79.01 Long term (current) use of anticoagulants; Z87.442 Personal history of urinary calculi; Z87.891 Personal history of nicotine dependence
CPT/HCPCS: 36415; 71045; 74018; 74021; 76376; 76770; 80048; 80053; 81003; 82150; 83605; 83690; 83735; 84100; 84478; 85025; 85651-TC; 85730-TC; 86140; 86886; 86900; 86901; 87040; 87070; 87070-TC; 87075-TC; 87081; 88304; 88305; 88307; 93005; 93306; 94010; 94760; 96365; 96375; 97116-GP; 97530-GP; 99285; C1751; C9290; G0378; J0131; J0153; J0330; J0696; J1100; J1170; J1200; J1450; J1815; J1885; J1956; J2060; J2175; J2270; J2405; J2543; J2704; J2765; J3010; J3475; J3480; J3490; J7030; J7050; J7060; J7120; J7131; Q0162; Q9964